=== PATIENT | female | born 1995 | race Caucasian/White ===

== ENCOUNTER 2016-03-26 20:55 | Emergency (ER) | payer MEDICARE, MEDICAID ==
[~2016-03-26] VITALS: Ht 167.6 cm; Wt 83.9 kg
[~2016-03-26 20:55] MED LIST: AMOX500C2 PO; ARIP10TA2 PO; ARIP5TAB13 PO; EMTR1TAB7 PO; FLUO10CA19; LISD50CA2 PO; ONDA8TAB13 PO; PRD20T PO; PROZAC; Prenatal; RALT400T PO; SULF1TAB35 PO; VYVANSE
--- NOTE | 2016-03-26 22:07 | Diagnostic Imaging Report ---
EXAM: Right hand. INDICATION: Randolph pain, 3 views were obtained. FINDINGS: No fracture, dislocation or acute bony abnormality evident. The soft tissues are unremarkable. As noted on the right wrist exam, there is ulnar minus variance. IMPRESSION: There is no evidence for an acute bony abnormality. Dictated by: Dictated on workstation # [id number]
--- NOTE | 2016-03-26 22:07 | Diagnostic Imaging Report ---
EXAMINATION: Right wrist INDICATION: Hand pain Three views were obtained. There is no fracture, dislocation or acute bony abnormality evident. The radiocarpal joint is fairly well-maintained. There is ulnar minus variance. The soft tissues are unremarkable. IMPRESSION: There is no evidence for an acute bony abnormality. Dictated by: Dictated on workstation # [id number]
--- NOTE | 2016-03-26 22:20 | ED General ---
General Chief Complaint: Upper Extremity Stated Complaint: R WRIST INJ Nursing Triage Note: c/o R wrist pain after getting out of bed. reports is 23 weeks gestation Source of Information: Patient Exam Limitations: No Limitations History of Present Illness Time Seen by Provider: 21:30 Initial Comments Patient complains of pain in the right wrist for the last 2-3 days. Tonight she was pushing herself up off the bed when she felt/heard her wrist pop a couple of times. The pain then intensified. She denies any known injury. There is no swelling, erythema, or other evidence of inflammation. She has not taken any medication for the pain. She does not work or perform any repetitive activities with this hand. She is presently . Allergies and Home Medications Allergies Coded Allergies: NKANo Known Allergies (Verified Allergy, Unknown, 01/24/06) Home Medications #30 (Reported) Constitutional: no symptoms reported EENTM: no symptoms reported Respiratory: no symptoms reported Cardiovascular: no symptoms reported Gastrointestinal: no symptoms reported Genitourinary: no symptoms reported : Yes Expected Date of Delivery: July 23, 2016 Musculoskeletal: see HPI Skin: no symptoms reported Psychiatric/Neurological: No Symptoms Reported Hematologic/Lymphatic: No Symptoms Reported Immunological/Allergic: no symptoms reported Past Hlhevws-Xdhyqn-Cxenyq Hx Patient Social History Alcohol Use: Denies Use Recreational Drug Use: Yes (THC) Smoking Status: Current Everyday Smoker Type Used: Cigarettes Recent Foreign Travel: No Contact w/Someone Who Travel: No Recent Infectious Disease Expo: No Recent Hopitalizations: No Ebola Symptoms: Denies Symptoms Listed Physical Abuse Screen: No Sexual Abuse: No Immunizations Up To Date Date of Influenza Vaccine: Dec 16, 2012 Seasonal Allergies Seasonal Allergies: No Surgeries HX Surgeries: No Respiratory Hx Respiratory Disorders: No Cardiovascular Hx Cardiac Disorders: No Neurological Hx Neurological Disorders: No Reproductive System Hx : 1 Hx Reproductive Disorders: No Genitourinary Hx Genitourinary Disorders: No Gastrointestinal Hx Gastrointestinal Disorders: No Musculoskeletal Hx Musculoskeletal Disorders: Yes (cleft pallet) Endocrine Hx Endocrine Disorders: No HEENT HX ENT Disorders: Yes (Cleft palate) Cancer Hx Cancer: No Psychosocial Hx Psychiatric Problems: Yes Behavioral Health Disorders: ADD/ADHD, Depression Integumentary HX Skin/Integumentary Disorder: No Blood Transfusions Hx Blood Disorders: No Family Medical History Significant Family History: No Pertinent Family Hx Physical Exam Vital Signs Vital Sign - Last 12Hours 03/26/16 03/26/16 21:00 22:23 Temp 98.4 Pulse 111 Resp 18 B/P 118/79 Pulse Ox 98 Capillary Refill : General Appearance: No Apparent Distress WD/WN HEENT: Normal ENT Inspection Respiratory: Normal Breath Sounds No Respiratory Distress Extremity: Other (No swelling or erythema of the right wrist. There is tenderness along the proximal aspect of the fifth metacarpal and throughout the wrist. 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 Patient was given a wrist brace for support. Diagnostic Imaging Diagonstic Imaging: Xray Plain Films/CT/US/NM/MRI: hand (Andrist) Comments X-rays of the right hand and wrist viewed by me and report reviewed. No acute injuries identified. Departure Impression Impression: Primary Impression: Right wrist pain Disposition: 01 HOME, SELF-CARE Condition: Improved Departure-Patient Inst. Decision time for Depature: 22:19 Referrals: FAWN BEACH DO (PCP/Family) Primary Care Physician Patient Instructions: NO INSTRUCTIONS GIVEN Add. Discharge Instructions: You may use Tylenol up to 1000 mg every 6 hours as needed for pain. Use the wrist brace as needed for support. Follow-up with your primary care provider within the next week if pain does not resolve. 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 All discharge instructions reviewed with patient and/or family. Voiced understanding. BASHIR CATHERINE MD Mar 26, 2016 22:20
== END 2016-03-26 22:24 | disposition home or self-care (01) ==
LOC: EDUNIT# 20:55 → ER 20:57
DX: O99.89 Other specified diseases and conditions complicating pregnancy, childbirth and the puerperium (principal); M79.641 Pain in right hand; O99.332 Smoking (tobacco) complicating pregnancy, second trimester; Z3A.23 23 weeks gestation of pregnancy
CPT/HCPCS: 73110; 73130; 99283

== ENCOUNTER 2016-06-17 10:31 | Outpatient (CLI) | payer MEDICARE, MEDICAID ==
[~2016-06-17] VITALS: Ht 167.6 cm; Wt 88.9 kg
[2016-06-17 11:00] VITALS: BP 122/73
--- NOTE | 2016-06-18 13:09 | Physician Query-Final Dx ---
MONTANA DANIELS 06/18/16 1309: Clinic Account Progress/Dx Physician Query: Please give diagnosis Date of Service Jun 17, 2016 at 10:31 CATALINA HURLEY MD 06/27/16 2004: Clinic Account Progress/Dx DIAGNOSIS: Diagnosis Vaginal Pressure Uterine Irritability MONTANA DANIELS Jun 18, 2016 13:09 CATALINA HURLEY MD Jun 27, 2016 20:04
[2016-06-19 07:18] LABS: CHLAMYDIA DNA PROBE PT Negative (Negative); NEISSERIA GONORRHEA DNA Negative (Negative)
== END 2016-06-17 12:42 | disposition home or self-care (01) ==
LOC: DELPENDDIS → WSo 10:31 → LDRP 10:31 → WSo 12:42
PROVIDERS: ATTEND Family Medicine
DX: O99.89 Other specified diseases and conditions complicating pregnancy, childbirth and the puerperium (principal); N85.8 Other specified noninflammatory disorders of uterus
CPT/HCPCS: 36415; 87070; 87491; 87591; 99213

== ENCOUNTER 2016-07-16 23:31 | Outpatient (CLI) | payer MEDICARE, MEDICAID ==
[~2016-07-16] VITALS: Ht 167.6 cm; Wt 91.2 kg
[2016-07-16 23:52] VITALS: BP 121/71
[2016-07-17 00:18] LABS: BILIRUBIN,URINE NEGATIVE (NEGATIVE); KETONES,URINE NEGATIVE (NEGATIVE); LEUKOCYTE ESTERASE ,URINE 1+ (NEGATIVE); NITRITE,URINE NEGATIVE (NEGATIVE); PH,URINE 7 (5-9); PROTEIN,URINE 1+ (NEGATIVE); UROBILINOGEN,URINE 1 MG/DL (NORMAL)
[2016-07-17] MEDS ORDERED: PREN-142 PO (01:00)
--- NOTE | 2016-07-17 12:38 | Physician Query-Final Dx ---
SAADIA BISHOP 07/17/16 1238: Clinic Account Progress/Dx Physician Query: Please give diagnosis Date of Service July 16, 2016 at 23:31 CATALINA HURLEY MD 07/18/16 1516: Clinic Account Progress/Dx DIAGNOSIS: Diagnosis Contractions Third trimester SAADIA BISHOP July 17, 2016 12:38 CATALINA HURLEY MD July 18, 2016 15:16
== END 2016-07-17 01:05 | disposition home or self-care (01) ==
LOC: WSo 23:31 → LDRP 23:33 → WSo 07-17 01:05
PROVIDERS: ATTEND Family Medicine
DX: O47.1 False labor at or after 37 completed weeks of gestation (principal); Z3A.39 39 weeks gestation of pregnancy
CPT/HCPCS: 81000; 99213

== ENCOUNTER 2016-07-22 20:04 | Inpatient (IN) | payer MEDICARE, MEDICAID ==
[~2016-07-22] VITALS: Ht 167.6 cm; Wt 91.6 kg
[~2016-07-22 20:04] MED LIST changes: +PREN-142 PO
[2016-07-22 20:14] VITALS: BP 106/59
[2016-07-22] MEDS ORDERED: ACETAMINOPHEN 500 MG TAB (TYLENOL) PO ONE (21:15)
--- NOTE | 2016-07-23 07:50 | Diagnostic Imaging Report ---
INDICATION: Undergoing induction. TECHNIQUE: Multiple, but limited real time boyce scale sonographic images were obtained of the gravid uterus. CORRELATION STUDY: None FINDINGS: Limited obstetrical sonogram imaging demonstrates a intrauterine , currently in a breech presentation. The upper limits amount of amniotic fluid index at 17.5 cm. Placenta is anterior with evidence for previa. anatomical evaluation not performed. Additionally, heart rate was not obtained. Biometrical measurements are as follows: Biparietal diameter 9.63 cm, age 39 weeks 3 days . Head circumference 34.63 cm, age 40 weeks 1 day . Abdominal circumference 37.72 cm, age 41 weeks 5 days . Femur length 7.65 cm, age 39 weeks 1 day . Sonographic estimated age: 40 weeks 1 day. Sonographic estimated date of delivery: 07/21/2016. heart rate: Not obtained. Estimated Weight: 4163 gm (+/- 608 gm) LMP Percentile: 89% IMPRESSION: 1. Single intrauterine in a breech presentation. Sonographic estimated age of 30 weeks 1 day with for an estimated date of delivery of July 21, 2016. Upper limits amount of amniotic fluid. Dictated by: Dictated on workstation # [id number]
[2016-07-23] MEDS ORDERED: OXYC-197 PO (08:03)
[2016-07-23] MEDS ORDERED: IBUP-1773 PO (08:03)
[2016-07-23] MEDS ORDERED: DOCU-143 PO (08:03)
--- NOTE | 2016-07-25 10:26 | Physician Query-Final Dx ---
DONNY PATTEN 07/25/16 1026: Clinic Account Progress/Dx Physician Query: Please give diagnosis Date of Service Progress Note: Donny [phone] ANA LAURA LICONA MD 08/01/16 2013: Clinic Account Progress/Dx DIAGNOSIS: Diagnosis 39 weeks gestation Breech position (admitted for IOL, discharged due to breech position, plan for c -section in the morning) DONNY PATTEN July 25, 2016 10:26 ANA LAURA LICONA MD August 01, 2016 20:13
== END 2016-07-22 22:25 | disposition home or self-care (01) | DRG 782 ==
LOC: LDRP 20:04
PROVIDERS: ADMIT Family Medicine; ATTEND Family Medicine
DX: O32.1XX0 Maternal care for breech presentation, not applicable or unspecified (principal); Z3A.39 39 weeks gestation of pregnancy
CPT/HCPCS: 76816; 80306

== ENCOUNTER 2016-07-23 07:07 | Inpatient (IN) | payer MEDICARE, MEDICAID ==
[~2016-07-23] VITALS: Ht 167.6 cm; Wt 90.3 kg
[2016-07-23 07:20] VITALS: BP 112/64
[2016-07-23] MEDS ORDERED: LACTATED RINGERS 1,000 ML IV PRN (07:22)
[2016-07-23] MEDS ORDERED: FAMOTIDINE 20MG/2ML IV (PEPCID) IV ONE ×2 (07:30→08:00)
[2016-07-23] MEDS ORDERED: METOCLOPRAMIDE INJ 10 MG/2 ML (REGLAN) IV ONE ×2 (07:30→08:00)
[2016-07-23] MEDS ORDERED: CITRIC ACID/SOB CIT (BICITRA) 30 ML UDC PO ONE ×2 (07:30→08:00)
[2016-07-23 07:55] VITALS: BP 113/75
[2016-07-23] MEDS ORDERED: fentaNYL INJECTION 100 MCG/2 ML AMP ONE (07:55)
[2016-07-23] MEDS ORDERED: OXYTOCIN/NORMAL SALINE 1,000 ML IV ONE (07:55)
--- NOTE | 2016-07-23 07:56 | History & Physical-OB ---
OB - Chief Complaint & HPI Date Date of Admission: Date of Admission: July 23, 2016 at 07:07 Chief Complaint/History OB-Reason for Admission/Chief: Induction of Labor Hx : 1 Hx Para: 0 Expected Date of Delivery: July 23, 2016 Gestational Age in Weeks: 40 Gestational Age in Days: 0 Other reason for admission: 21 y/o G1 @ 40w0d here as a scheduled elective IOL by Dr. Larose - subsequently found to be breech. I was contacted by Dr. Larose last night for management options. Denies complaints EFW 9lb3oz on sono yesterday, YESENIA 17cm Would like to proceed with scheduled c/s c/b tobacco use (has continued throughout ), also h/o chlamydia. H/o ADHD/depression/anxiety. H/o THC use. RH neg. History of Labs O neg Antibody neg HIV neg RI GC/CT neg/neg UDS neg RPR NR GBS Neg TSH normal Normal QS Allergies and Home Medications Allergies Coded Allergies: NKANo Known Allergies (Verified Allergy, Unknown, 01/24/06) Home Medications Vit No.124/Iron/FA 1 Each Tablet, 1 EACH PO DAILY, (Reported) OB - History Hx of Present Ultrasounds: Abnormal US findings (LGA (9lb3oz)) Obstetrical Complications: Other (Rh neg) Medical Complications: Other (ADHD/depression/anxiety, tobacco use) Information Maternal Gestational Diabetes: No Hemorrhage: No Obstetrical History Hx : 1 Delivery History Hx Blood Disorders: No Patient Past Medical History see above Social History/Family History HIV/AIDS: No Recent Infectious Disease Expo: No Sexually Transmitted Disease: Yes (h/o chlamydia, neg in ) Smoking Cessation: Current every day smoker Immunizations Tetanus Booster (TDap): Less than 5yrs (05/23/16 per record) Date of Influenza Vaccine: Dec 16, 2012 Rubella: immune RPR/VDRL: Negative GBS Status: Negative OB - Admission Exam Physical Exam Vitals: see air tucker HEENT: NCAT Heart: Rhythm Normal Lungs: Clear Abdomen: Gravid Extremities: Normal Reflexes: Normal Heart Rate: 130's Accelerations: Accelerations Present Decelerations: No Decelerations Short Term Variability: Present Hog Raiser Variability: Average (6-25) Contractions on Admission: >10 Minutes Apart OB - Assessment/Plan/Diagnosis Plan Other Plan 21 y/o G1 @ 40w0d with scheduled elective IOL, pt of Dr. Larose, subsequently found to be in breech presentation (confirmed on my sono today - footling breech , spine up, head to maternal right) GBS neg Tobacco use H/o THC use Depression/anxiety/ADHD Rh negative H/o chlamydia, neg this RI I discussed with Lara options including ECV which I am hesitant to perform given LGA fetus in a G1 mother. She is in agreement with plan for CS and I did vocational guidance counselor her that in the future she would be a great candidate if no contraindications to vaginal delivery in future . Did vocational guidance counselor her on the importance of tobacco cessation both for her and her baby as well as healing purposes. Discussed r/b/a to section. Specific risks including bleeding, infection, damage to surrounding structures including but not limited to bowel/ bladder/nerves/vessels/other structures and damage to mother or infant. Spinal anesthesia Lissette-operative ancef RhoGAM if indicated TAMRA Corbett MD July 23, 2016 07:56
[2016-07-23] MEDS ORDERED: CATHETER FLUSH 10 ML SYR IV PRN (08:00)
[2016-07-23] MEDS ORDERED: OXYC-197 PO (08:03)
[2016-07-23] MEDS ORDERED: DOCU-143 PO (08:03)
[2016-07-23] MEDS ORDERED: IBUP-1773 PO (08:03)
--- NOTE | 2016-07-23 08:04 | Discharge Inst-Women's Service ---
Discharge Inst-Women's Serv Depart Medication/Instructions New, Converted or Re-Newed RX: RX on Chart Final Diagnosis TIUP, breech presentation, delivery (low transverse) Consults/Follow Up Additional Follow Up: Yes Orders/Referrals 10-[address] Maria [address] Larose Activity Driving Instructions: No Driving for 1 Week (or while taking narcotic pain medications) NO SMOKING: NO SMOKING Nothing Inside Vagina: No Douching, No [place], No Tampons Other Activity No strenuous activity No heavy lifting > 10 lb Diet Discharge Diet: No Restrictions Symptoms to Report to DrBethanie: Bleeding Excessive, Pain Increased, Fever Over 101 Degrees F, Pain/Pressure in Chest, Vaginal Bleeding Increase, Dizziness/Fainting , Nausea/Vomiting, Shortness of Breath For Any Problems or Questions: Contact Your Physician, Go to Emergency Room Skin/Wound Care Infection Signs and Symptoms: Increased Redness, Foul Odor of Wound, Increased Drainage Operative Area Clean and Dry: Keep Incision Clean/Dry Stitches/[place]/Dermabond: Dermabond, Care of Stitches Bathing Instructions: TAMRA Mcdaniel MD July 23, 2016 08:04
[2016-07-23 08:05] LABS: BASOPHILS % (AUTO) 0 % (0-10); EOSINOPHILS # (AUTO) 0.1 10^3/uL (0.0-0.3); EOSINOPHILS % (AUTO) 1 % (0-10); LYMPHOCYTES # (AUTO) 2.7 X 10^3 (1.0-4.0); LYMPHOCYTES % (AUTO) 18 % (12-44); MEAN CORPUSCULAR HEMOGLOBIN 31 PG (25-34); MEAN CORPUSCULAR HGB CONC 34 G/DL (32-36); MEAN CORPUSCULAR VOLUME 90 FL (80-99); MEAN PLATELET VOLUME 10.3 FL (7.4-10.4); MONOCYTES # (AUTO) 1.1 X 10^3 (0.0-1.0); MONOCYTES % (AUTO) 7 % (0-12); NEUTROPHILS # (AUTO) 11.3 X 10^3 (1.8-7.8); NEUTROPHILS % (AUTO) 74 % (42-75); PLATELET COUNT 279 10^3/uL (130-400); RED BLOOD COUNT 4.09 10^6/uL (4.35-5.85); RED CELL DISTRIBUTION WIDTH 13.1 % (10.0-14.5); WHITE BLOOD COUNT 15.2 10^3/uL (4.3-11.0)
--- NOTE | 2016-07-23 08:08 | Cesarean Section Operative ---
Procedure Procedure Note Date of Procedure: 07/23/16 Pre-operative Diagnosis: Lara Loyd is a 21 y/o G1 @ 40w0d with footling breech presentation, Rh negative status, tobacco use, suspected large for gestational age fetus Post-operative Diagnosis: same Procedure: Primary low transverse section Physician: Sariah Maria MD Estimated blood loss: 400 mL Specimens: Placenta/cord blood to pathology/lab Disposition: Recovery room, stable Findings: Viable male , Apgars 9/9, weight [id number], intact placenta, 3vc, normal appearing uterus, tubes, and ovaries. Tight double nuchal cord. Indications: Lara Loyd is a 21 y/o G1 @ 40w0d presenting for scheduled induction of labor as per Dr. Larose. She was subsequently found to be in breech presentation before IOL was started. Ultrasound was performed which revealed adequate fluid however footling breech presentation and EFW of 9lb3oz. She was counseled on options and elected to proceed with delivery. Procedure Details: The patient was seen in pre-op and the procedure was discussed with the patient in full, including the risks, benefits, and alternatives. All questions were answered. The patient was taken to the operating room and a time out was performed, verifying patient and procedure. After spinal anesthesia was placed by our anesthesia colleagues, the patient was placed in the dorsal supine with leftward tilt for uterine displacement. Her abdomen was then prepped and draped in the typical sterile fashion. A Pfannenstiel skin incision was made using a scalpel and carried down through the underlying fascia. The fascia was incised in the midline and tented up using Guilherme clamps. On both the inferior and superior fascia side the rectus muscle was dissected off bluntly and sharply using Lockwood scissors. The peritoneum was identified and entered bluntly in the midline. This was then stretched laterally using manual strength. After entering the abdominal cavity and confirming lack of intraperitoneal adhesions, an extra-large Juan Carlos retractor was placed and the lower uterine segment was visualized. A bladder flap was created with the use of Metzenbaum scissors. A scalpel was utilized to make a low transverse uterine incision. Amniotomy was performed with an Allis clamp with return of clear fluid. The 's legs were grasped and brought to the level of the incision. The infant was delivered to the level of the shoulder blades, then each arm was individually flexed and delivered through the hysterotomy. Fundal pressure was applied and infant's head was then delivered without difficulty. Mouth and nares were suctioned with bulb suction. After the umbilical cord was clamped and cut, the infant was handed off to the pediatric staff. A sample of cord blood was then obtained. The placenta was delivered intact via uterine massage. The uterus was cleared of all clots and debris. The uterine incision was closed using 0 Vicryl in a running locked fashion. A second imbricated layer was placed using 0 Vicryl in a running fashion as well. The hysterotomy site was examined and hemostasis was observed. The bilateral tubes and ovaries appeared normal. The gutters were cleared of all clots and debris. A final check of the uterine incision showed it to be hemostatic. Intercede was placed over the hysterotomy. The peritoneum was closed using 3-0 Vicryl in a running fashion. The fascia was closed with 0 Vicryl in a running fashion. The subcutaneous space was hemostatic, and irrigated. The subcutaneous space was closed with 3-0 Vicryl in several single interrupted stitches. The skin was then closed using 4-0 Monocryl in a running subcuticular fashion. The skin edges were reapproximated together and were hemostatic. A pressure dressing was applied. All sponge, lap and needle counts were correct at the end of the procedure per nursing. Vitals - Labs Labs Laboratory Tests 07/23/16 07:44: SARIAH MARIA MD July 23, 2016 08:08
[2016-07-23] MEDS ORDERED: ceFAZolin 2 GM/50 ML NS 50 ML ONE (08:11)
[2016-07-23 08:26] LABS: BAND NEUTROPHILS 0 %; BASOPHILS % (MANUAL) 0 %; EOSINOPHILS % (MANUAL) 0 %; LYMPHOCYTES % (MANUAL) 14 %; NEUTROPHILS % (MANUAL) 76 %
[2016-07-23] MEDS ORDERED: OXYTOCIN/NORMAL SALINE 500 ML IV SCH (09:27)
[2016-07-23] MEDS ORDERED: morphine INJ 4 MG/ML 1 ML (VIAL/SYRINGE) IVP PRN (09:30)
[2016-07-23 10:00] VITALS: BP 108/70
[2016-07-23] MEDS: KETOROLAC 30 MG/ML VIAL IVP SCH ×3 (10:10→21:49)
[2016-07-23] MEDS: oxyCODONE/APAP 5/325MG (PERCOCET 5) TABLET PO PRN ×3 (12:15→21:51)
[2016-07-23 13:30] VITALS: BP 112/68
[2016-07-23 15:38] LABS: BILIRUBIN,URINE NEGATIVE (NEGATIVE); KETONES,URINE NEGATIVE (NEGATIVE); LEUKOCYTE ESTERASE ,URINE NEGATIVE (NEGATIVE); NITRITE,URINE NEGATIVE (NEGATIVE); PH,URINE 8 (5-9); PROTEIN,URINE NEGATIVE (NEGATIVE); UROBILINOGEN,URINE NORMAL (NORMAL)
[2016-07-23 15:51] VITALS: BP 119/73
[2016-07-23 16:08] LABS: WBC,URINE 0-2 /HPF
[2016-07-23] MEDS: NICOTINE 14 MG (NICODERM) PATCH TD SCH (16:08)
[2016-07-23 19:57] VITALS: BP 108/67
[2016-07-23] MEDS: DOCUSATE SODIUM 100 MG (COLACE) CAP PO SCH (21:49)
[2016-07-23] MEDS: CATHETER FLUSH 10 ML SYR IV SCH (22:00)
[2016-07-24] MEDS: oxyCODONE/APAP 5/325MG (PERCOCET 5) TABLET PO PRN ×4 (03:35→21:15)
[2016-07-24] MEDS: KETOROLAC 30 MG/ML VIAL IVP SCH (03:35)
[2016-07-24 04:00] VITALS: BP 104/61
[2016-07-24 05:46] LABS: BASOPHILS % (AUTO) 0 % (0-10); EOSINOPHILS # (AUTO) 0.1 10^3/uL (0.0-0.3); EOSINOPHILS % (AUTO) 1 % (0-10); LYMPHOCYTES # (AUTO) 2.8 X 10^3 (1.0-4.0); LYMPHOCYTES % (AUTO) 23 % (12-44); MEAN CORPUSCULAR HEMOGLOBIN 31 PG (25-34); MEAN CORPUSCULAR HGB CONC 34 G/DL (32-36); MEAN CORPUSCULAR VOLUME 91 FL (80-99); MEAN PLATELET VOLUME 9.8 FL (7.4-10.4); MONOCYTES % (AUTO) 8 % (0-12); NEUTROPHILS # (AUTO) 8.5 X 10^3 (1.8-7.8); NEUTROPHILS % (AUTO) 68 % (42-75); PLATELET COUNT 234 10^3/uL (130-400); RED BLOOD COUNT 3.43 10^6/uL (4.35-5.85); WHITE BLOOD COUNT 12.5 10^3/uL (4.3-11.0)
[2016-07-24] MEDS: CATHETER FLUSH 10 ML SYR IV SCH ×2 (06:58→12:40)
[2016-07-24] MEDS ORDERED: IBUPROFEN 600 MG (MOTRIN) TAB PO ONE (08:37)
[2016-07-24] MEDS ORDERED: IBUPROFEN 800 MG (MOTRIN) TAB PO ONE (08:56)
[2016-07-24] MEDS ORDERED: NICOTINE PATCH REMOVAL TP SCH (08:59)
[2016-07-24 09:11] VITALS: BP 108/61
[2016-07-24] MEDS: DOCUSATE SODIUM 100 MG (COLACE) CAP PO SCH ×2 (09:12→20:38)
[2016-07-24] MEDS: IBUPROFEN 800 MG (MOTRIN) TAB PO SCH ×3 (09:12→20:39)
--- NOTE | 2016-07-24 09:58 | Postpartum Progress Note ---
Post Op Post-operative Day #1 s/p PLTCS, breech Subjective: Patient is without complaints. Ambulating, voiding after mcdonald removed. Tolerating a regular diet without nausea or vomiting. Normal lochia. Pain is well controlled with oral pain medications. Passing flatus. she is requesting to leave the floor to smoke. Discusse replacing the patch as it had fallen off. Would prefer she use the patch and not leave the floor. Objective: Laboratory Tests Test 07/24/16 05:33 Range/Units White Blood Count 12.5 H 4.3-11.0 10^3/uL Red Blood Count 3.43 L 4.35-5.85 10^6/uL Hemoglobin 10.6 L 11.5-16.0 G/DL Hematocrit 31 L 35-52 % Mean Corpuscular Volume 91 80-99 FL Mean Corpuscular Hemoglobin 31 25-34 PG Mean Corpuscular Hemoglobin Concent 34 32-36 G/DL Red Cell Distribution Width 13.0 10.0-14.5 % Platelet Count 234 130-400 10^3/uL Mean Platelet Volume 9.8 7.4-10.4 FL Neutrophils (%) (Auto) 68 42-75 % Lymphocytes (%) (Auto) 23 12-44 % Monocytes (%) (Auto) 8 0-12 % Eosinophils (%) (Auto) 1 0-10 % Basophils (%) (Auto) 0 0-10 % Neutrophils # (Auto) 8.5 H 1.8-7.8 X 10^3 Lymphocytes # (Auto) 2.8 1.0-4.0 X 10^3 Monocytes # (Auto) 1.0 0.0-1.0 X 10^3 Eosinophils # (Auto) 0.1 0.0-0.3 10^3/uL Basophils # (Auto) 0.0 0.0-0.1 10^3/uL Vital Sign - Last 12Hours 07/24/16 07/24/16 04:00 09:11 Temp 98.4 99.0 Pulse 97 93 Resp 20 18 B/P (MAP) 104/61 108/61 Pulse Ox 97 97 O2 Delivery Room Air Room Air Intake and Output 07/24/16 00:00 Intake Total 3020 ml Output Total 1100 ml Balance 1920 ml Physical Exam: General - Alert and oriented, no apparent distress Abdomen - Soft, appropriately tender to palpation, non-distended, fundus firm at umbilicus Incision - clean, dry and intact; no erythema or induration, no drainage Extremities - no edema, negative Twin's bilaterally Assessment: 1. post-operative day # 1, status post PLTCS. Recovering well, hemodynamically stable 2.Acute blood loss anemia 3. smoker - replace the patch Plan: Routine post-operative care. Encourage breast feeding. Encourage ambulation. VTE prophylaxis: SCDs. Ferrous sulfate supplementation. Plan for discharge tomorrow Vitals - Labs Vital Signs - I&O Vital Signs Date Time Temp Pulse Resp B/P (MAP) Pulse Ox O2 Delivery O2 Flow Rate FiO2 07/24/16 09:11 99.0 93 18 108/61 97 Room Air 07/24/16 04:00 98.4 97 20 104/61 97 Room Air 07/23/16 19:57 98.0 94 20 108/67 96 Room Air 07/23/16 15:51 98.0 86 16 119/73 96 Room Air 07/23/16 13:30 98.2 98 18 112/68 96 Room Air 07/23/16 12:45 98.2 07/23/16 10:00 98.0 90 15 108/70 97 Room Air I & O 07/24/16 07:00 Intake Total 6220 ml Output Total 2650 ml Balance 3570 ml Labs Laboratory Tests 07/24/16 05:33: White Blood Count 12.5H, Red Blood Count 3.43L, Hemoglobin 10.6L, Hematocrit 31L , Mean Corpuscular Volume 91, Mean Corpuscular Hemoglobin 31, Mean Corpuscular Hemoglobin Concent 34, Red Cell Distribution Width 13.0, Platelet Count 234, Mean Platelet Volume 9.8, Neutrophils (%) (Auto) 68, Lymphocytes (%) (Auto) 23, Monocytes (%) (Auto) 8, Eosinophils (%) (Auto) 1, Basophils (%) (Auto) 0, Neutrophils # (Auto) 8.5H, Lymphocytes # (Auto) 2.8, Monocytes # (Auto) 1.0, Eosinophils # (Auto) 0.1, Basophils # (Auto) 0.0 MINDY DIAZ DO July 24, 2016 09:58
[2016-07-24] MEDS: NICOTINE 14 MG (NICODERM) PATCH TD SCH (10:10)
[2016-07-24 15:06] VITALS: BP 122/75
[2016-07-24 20:00] VITALS: BP 114/72
[2016-07-25 03:03] VITALS: BP 129/77
[2016-07-25] MEDS: IBUPROFEN 800 MG (MOTRIN) TAB PO SCH ×4 (03:03→20:34)
[2016-07-25] MEDS: DOCUSATE SODIUM 100 MG (COLACE) CAP PO SCH ×2 (08:34→20:34)
[2016-07-25] MEDS: oxyCODONE/APAP 5/325MG (PERCOCET 5) TABLET PO PRN ×3 (08:34→20:34)
--- NOTE | 2016-07-25 09:25 | Postpartum Progress Note ---
Post Op Post-operative Day #2 Subjective: Unable to obtain as I came by her room four times from 7:00-9:00 this morning and patient was not present at any of those times; per nursing, she was out smoking. Objective: VS - Last 72 Hours, by Label 07/23/16 07/23/16 07/23/16 07/23/16 07:20 07:55 10:00 12:45 Temp 98.1 98.0 98.2 Pulse 116 104 90 Resp 20 20 15 B/P (MAP) 112/64 113/75 108/70 Pulse Ox 97 O2 Delivery Room Air Room Air Room Air 07/23/16 07/23/16 07/23/16 07/24/16 13:30 15:51 19:57 04:00 Temp 98.2 98.0 98.0 98.4 Pulse 98 86 94 97 Resp 18 16 20 20 B/P (MAP) 112/68 119/73 108/67 104/61 Pulse Ox 96 96 96 97 O2 Delivery Room Air Room Air Room Air Room Air 07/24/16 07/24/16 07/24/16 07/25/16 09:11 15:06 20:00 03:03 Temp 99.0 97.8 97.7 98.0 Pulse 93 113 90 83 Resp 18 18 16 16 B/P (MAP) 108/61 122/75 114/72 129/77 Pulse Ox 97 98 95 97 O2 Delivery Room Air Room Air Room Air Room Air Physical Exam: General - Alert and oriented, no apparent distress Abdomen - Soft, appropriately tender to palpation, non-distended, fundus firm at umbilicus Incision - clean, dry and intact; no erythema or induration, no drainage Extremities - no edema, negative Twin's bilaterally no new labs Assessment: 21 y/o post-operative day # 2, status post PLTCS for breech presentation. Recovering well, hemodynamically stable Acute blood loss anemia Tobacco use H/o THC use Depression/anxiety/ADHD Rh negative Plan: Routine post-operative care. Encourage breast feeding. Encourage ambulation. VTE prophylaxis: SCDs. Ferrous sulfate supplementation. Encourage smoking cessation. Do not replace nicotine patch as pt is smoking outside anyways. Will attempt to see patient again later today. But will not be discharging home per Dr. Falk, so will keep until tomorrow. Vitals - Labs Vital Signs - I&O Vital Signs Date Time Temp Pulse Resp B/P (MAP) Pulse Ox O2 Delivery O2 Flow Rate FiO2 07/25/16 03:03 98.0 83 16 129/77 97 Room Air 07/24/16 20:00 97.7 90 16 114/72 95 Room Air 07/24/16 15:06 97.8 113 18 122/75 98 Room Air I & O 07/25/16 07:00 Intake Total 2700 ml Output Total 1300 ml Balance 1400 ml TAMRA DUARTE MD July 25, 2016 09:25
[2016-07-25 09:48] VITALS: BP 120/79
[2016-07-25 12:00] VITALS: BP 105/74
[2016-07-25] MEDS ORDERED: FERR-84 PO (12:28)
[2016-07-25] MEDS: FERROUS SULF 325 MG (IRON) TAB PO SCH (14:20)
[2016-07-25 20:00] VITALS: BP 116/74
[2016-07-26] MEDS: IBUPROFEN 800 MG (MOTRIN) TAB PO SCH ×2 (02:23→08:32)
[2016-07-26 03:07] VITALS: BP 119/77
[2016-07-26 08:30] VITALS: BP 107/72
[2016-07-26] MEDS: DOCUSATE SODIUM 100 MG (COLACE) CAP PO SCH (08:31)
[2016-07-26] MEDS: oxyCODONE/APAP 5/325MG (PERCOCET 5) TABLET PO PRN (08:32)
[2016-07-26] MEDS: FERROUS SULF 325 MG (IRON) TAB PO SCH (08:32)
--- NOTE | 2016-07-26 12:56 | Progress Note-Standard ---
Standard Progress Note Progress Notes/Assess & Plan Progress/Assessment & Plan Post-operative Day #3 Subjective: Unable to obtain as I came by her room twice from 7:00-9:00 this morning and patient was not present at any of those times; per nursing, she was out smoking. Per RN her pain is well controlled and she is ambulating and voiding freely. Objective: Vital Sign - Last 24 Hours 07/25/16 07/26/16 20:00 03:07 Temp 98.6 97.8 Pulse 78 95 Resp 17 16 B/P (MAP) 116/74 119/77 Pulse Ox 98 95 O2 Delivery Room Air Room Air Physical Exam: unable to obtain -per RN incision is clean dry and intact no new labs Assessment: 21 y/o post-operative day # 3, status post PLTCS for breech presentation. Recovering well, hemodynamically stable Acute blood loss anemia Tobacco use H/o THC use Depression/anxiety/ADHD Rh negative Plan: Routine post-operative care. Encourage breast feeding. Encourage ambulation. VTE prophylaxis: SCDs. Ferrous sulfate supplementation. Encourage smoking cessation. Do not replace nicotine patch as pt is smoking outside anyways. JL MIRANDA DO July 26, 2016 12:56 pm
== END 2016-07-26 13:20 | disposition home or self-care (01) | DRG 766 ==
LOC: LDRP 07:07
PROVIDERS: ADMIT Family Medicine; ATTEND Family Medicine
PROC: 10D00Z1 Extraction of Products of Conception, Low, Open Approach (ICD-10-PCS; principal; 2016-07-23 08:18)
DX: O64.8XX0 Obstructed labor due to other malposition and malpresentation, not applicable or unspecified (principal); O36.63X0 Maternal care for excessive fetal growth, third trimester, not applicable or unspecified; O69.1XX0 Labor and delivery complicated by cord around neck, with compression, not applicable or unspecified; O99.334 Smoking (tobacco) complicating childbirth; F17.210 Nicotine dependence, cigarettes, uncomplicated; O99.344 Other mental disorders complicating childbirth; F32.9 Major depressive disorder, single episode, unspecified; F41.9 Anxiety disorder, unspecified; F90.9 Attention-deficit hyperactivity disorder, unspecified type; Z37.0 Single live birth; Z3A.40 40 weeks gestation of pregnancy
CPT/HCPCS: 36415; 81000; 83033; 85007; 85025; 85027; 86850; 86900; 86901; 94664

== ENCOUNTER 2018-08-19 01:06 | Emergency (ER) | payer MEDICARE, MEDICAID ==
[~2018-08-19] VITALS: Ht 167.6 cm; Wt 83.9 kg
[~2018-08-19 01:06] MED LIST changes: +DOCU-143 PO; +FERR-84 PO; +IBUP-1773 PO; +OXYC1TAB87 PO
[2018-08-19] MEDS ORDERED: fentaNYL INJECTION 100 MCG/2 ML AMP IVP STA (01:28)
[2018-08-19] MEDS ORDERED: NS IV 1000 ML 1,000 ML IV STA (01:28)
[2018-08-19] MEDS ORDERED: KETOROLAC 30 MG/ML VIAL IVP STA (01:28)
[2018-08-19] MEDS ORDERED: ONDANSETRON 4 MG/2 ML (SDV) Z0FRAN IVP ONE (01:30)
[2018-08-19 01:33] LABS: BILIRUBIN,URINE NEGATIVE (NEGATIVE); CLARITY,URINE SLIGHTLY CLOUDY; COLOR,URINE YELLOW; GLUCOSE, URINE (UA) NEGATIVE (NEGATIVE); KETONES,URINE NEGATIVE (NEGATIVE); LEUKOCYTE ESTERASE ,URINE 1+ (NEGATIVE); NITRITE,URINE NEGATIVE (NEGATIVE); PH,URINE 7 (5-9); PROTEIN,URINE 2+ (NEGATIVE); UROBILINOGEN,URINE 8 MG/DL (NORMAL)
[2018-08-19 01:42] LABS: BASOPHILS % (AUTO) 0 % (0-10); EOSINOPHILS % (AUTO) 0 % (0-10); HEMATOCRIT 41 % (35-52); HEMOGLOBIN 13.5 G/DL (11.5-16.0); LYMPHOCYTES # (AUTO) 1.6 X 10^3 (1.0-4.0); LYMPHOCYTES % (AUTO) 9 % (12-44); MEAN CORPUSCULAR HEMOGLOBIN 29 PG (25-34); MEAN CORPUSCULAR HGB CONC 33 G/DL (32-36); MEAN CORPUSCULAR VOLUME 88 FL (80-99); MEAN PLATELET VOLUME 9.5 FL (7.4-10.4); MONOCYTES % (AUTO) 6 % (0-12); NEUTROPHILS # (AUTO) 14.9 X 10^3 (1.8-7.8); NEUTROPHILS % (AUTO) 85 % (42-75); PLATELET COUNT 273 10^3/uL (130-400); RED CELL DISTRIBUTION WIDTH 14.1 % (10.0-14.5); WHITE BLOOD COUNT 17.6 10^3/uL (4.3-11.0)
[2018-08-19 01:45] LABS: BACTERIA,URINE MODERATE /HPF
--- NOTE | 2018-08-19 02:02 | ED Abdominal Pain ---
General Chief Complaint: Abdominal/GI Problems Stated Complaint: PAIN IN SIDE AND BACK Nursing Triage Note: AMBULATORY TO ED WITH C/O PAIN TO RUQ THROUGH TO MIDDLE OF BACK THAT STARTED 2H [employer]. LAST ATE BEER BRATWURST AT APPROX 1999. POSITIVE FOR N/V. ABD TENDER TO PALPATION. Sepsis Screen: No Definite Risk Source of Information: Patient, Family Exam Limitations: No Limitations History of Present Illness Date Seen by Provider: Aug 19, 2018 Time Seen by Provider: 01:21 Initial Comments Here with report of right upper quadrant abdominal pain that goes to her back. Onset a few hours ago. Last ate at about 8 PM and did not have pain related to that but it started later. Worse until now. Presents with increasing pain. Never had anything like this before. Denies dysuria or diarrhea. Timing/Duration: 4-6 Hours Severity/Quality: Moderate, Severe Location: RUQ Radiation: Back Activities at Onset: None Modifying Factors: Worsens With Movement; Improves With Resting Associated Symptoms: Back Pain; No Chest Pain, No Fever/Chills, No Nausea/Vomiting, No Shortness of Air, No Swelling/Mass in Abdomen, No Weakness Allergies and Home Medications Allergies Coded Allergies: NKANo Known Allergies (Verified Allergy, Unknown, 01/24/06) Patient Home Medication List Home Medication List Reviewed: Yes Review of Systems Review of Systems Constitutional: No chills, No fever EENTM: No Symptoms Reported Respiratory: No Symptoms Reported Cardiovascular: Denies Chest Pain, Denies Edema Gastrointestinal: Abdominal Pain, Nausea, Vomiting Genitourinary: No Symptoms Reported Musculoskeletal: see HPI Skin: no symptoms reported Psychiatric/Neurological: No Symptoms Reported Endocrine: No Symptoms Reported All Other Systems Reviewed Negative Unless Noted: Yes Past Ijloksu-Qwkiiy-Ocsmvs Hx Past Med/Social Hx: Reviewed Nursing Past Med/Soc Hx Patient Social History Alcohol Use: Occasionally Uses Recreational Drug Use: Yes Drug of Choice: MARIJUANA Smoking Status: Current Everyday Smoker Type Used: Cigarettes Recent Foreign Travel: No Contact w/Someone Who Travel: No Recent Infectious Disease Expo: No Recent Hopitalizations: No Immunizations Up To Date Tetanus Booster (TDap): Less than 5yrs Date of Influenza Vaccine: Dec 16, 2012 Seasonal Allergies Seasonal Allergies: No Past Medical History Surgeries: Yes Section Respiratory: No Cardiac: No Neurological: No Reproductive Disorders: No Sexually Transmitted Disease: Yes (h/o chlamydia, neg in ) HIV/AIDS: No Genitourinary: No Gastrointestinal: No Musculoskeletal: Yes (cleft pallet) Endocrine: No HEENT: Yes (WEARS GLASSES) Cancer: No Psychosocial: Yes ADD/ADHD, Depression Integumentary: No Blood Disorders: No Family Medical History Reviewed Nursing Family Hx FH: breast cancer ([employer] [employer]AND[employer]OTHER) Myocardial infarction ([facility]) No Pertinent Family Hx Physical Exam Vital Signs Vital Signs - First Documented 08/19/18 01:20 Temp 97.3 Pulse 87 Resp 18 B/P (MAP) 117/89 (98) O2 Delivery Room Air Capillary Refill : Less Than 3 Seconds Height/Weight/BMI Height: 5'6.00" Weight: 185lbs. 0.4oz. 83.500485jk; 32.1 BMI Method:Stated General Appearance: WD/WN, mild distress HEENT: PERRL/EOMI, pharynx normal Neck: full range of motion, supple Respiratory: lungs clear, normal breath sounds Cardiovascular: regular rate, rhythm, no murmur Peripheral Pulses: 2+ Dorsalis Pedis (R), 2+ Left Dors-Pedis (L), 2+ Radial Pulses (R), 2+ Radial Pulses (L) Gastrointestinal: soft; No rebound; tenderness; No mass Extremities: non-tender, normal inspection Back: normal inspection, no CVA tenderness, no vertebral tenderness Neurologic/Psychiatric: alert, oriented x 3 Skin: normal color, warm/dry Progress/Results/Core Measures Results/Orders Lab Results Laboratory Tests Test 08/19/18 01:27 08/19/18 01:33 Range/Units Urine Color YELLOW Urine Clarity SLIGHTLY CLOUDY Urine pH 7 5-9 Urine Specific [place] 1.010 L 1.016-1.022 Urine Protein 2+ H NEGATIVE Urine Glucose (UA) NEGATIVE NEGATIVE Urine Ketones NEGATIVE NEGATIVE Urine Nitrite NEGATIVE NEGATIVE Urine Bilirubin NEGATIVE NEGATIVE Urine Urobilinogen 8 H NORMAL MG/DL Urine Leukocyte Esterase 1+ H NEGATIVE Urine RBC (Auto) NEGATIVE NEGATIVE Urine RBC NONE /HPF Urine WBC 2-5 /HPF Urine Squamous Epithelial Cells 10-25 H /HPF Urine Crystals NONE /LPF Urine Bacteria MODERATE H /HPF Urine Casts NONE /LPF Urine Mucus MODERATE H /LPF Urine Culture Indicated YES White Blood Count 17.6 H 4.3-11.0 10^3/uL Red Blood Count 4.62 4.35-5.85 10^6/uL Hemoglobin 13.5 11.5-16.0 G/DL Hematocrit 41 35-52 % Mean Corpuscular Volume 88 80-99 FL Mean Corpuscular Hemoglobin 29 25-34 PG Mean Corpuscular Hemoglobin Concent 33 32-36 G/DL Red Cell Distribution Width 14.1 10.0-14.5 % Platelet Count 273 130-400 10^3/uL Mean Platelet Volume 9.5 7.4-10.4 FL Neutrophils (%) (Auto) 85 H 42-75 % Lymphocytes (%) (Auto) 9 L 12-44 % Monocytes (%) (Auto) 6 0-12 % Eosinophils (%) (Auto) 0 0-10 % Basophils (%) (Auto) 0 0-10 % Neutrophils # (Auto) 14.9 H 1.8-7.8 X 10^3 Lymphocytes # (Auto) 1.6 1.0-4.0 X 10^3 Monocytes # (Auto) 1.0 0.0-1.0 X 10^3 Eosinophils # (Auto) 0.0 0.0-0.3 10^3/uL Basophils # (Auto) 0.0 0.0-0.1 10^3/uL Neutrophils % (Manual) 81 % Lymphocytes % (Manual) 8 % Monocytes % (Manual) 9 % Eosinophils % (Manual) 1 % Band Neutrophils 1 % Blood Morphology Comment NORMAL Sodium Level 142 135-145 MMOL/L Potassium Level 3.6 3.6-5.0 MMOL/L Chloride Level 106 98-107 MMOL/L Carbon Dioxide Level 26 21-32 MMOL/L Anion Gap 10 5-14 MMOL/L Blood Urea Nitrogen 13 7-18 MG/DL Creatinine 0.71 0.60-1.30 MG/DL Estimat Glomerular Filtration Rate > 60 BUN/Creatinine Ratio 18 Glucose Level 114 H 70-105 MG/DL Calcium Level 9.3 8.5-10.1 MG/DL Corrected Calcium 9.0 8.5-10.1 MG/DL Magnesium Level 2.5 H 1.8-2.4 MG/DL Total Bilirubin 0.3 0.1-1.0 MG/DL Aspartate Amino Transf (AST/SGOT) 240 H 5-34 U/L Alanine Aminotransferase (ALT/SGPT) 138 H 0-55 U/L Alkaline Phosphatase 55 40-136 U/L Total Protein 6.7 6.4-8.2 GM/DL Albumin 4.4 3.2-4.5 GM/DL Lipase 15 8-78 U/L My Orders Orders - IAN CORRAL MD Urine Bedside (08/19/18 01:16) Ua Culture If Indicated (08/19/18 01:16) Ondansetron Injection (Zofran Injectio (08/19/18 01:30) Ns Iv 1000 Ml (Sodium Chloride 0.9%) (08/19/18 01:28) Ed Iv/Invasive Line Start (08/19/18 01:28) Fentanyl Injection (Sublimaze Injection (08/19/18 01:28) Ketorolac Injection (Toradol Injection) (08/19/18:28) Cbc With Automated Diff (08/19/18 01:28) Comprehensive Metabolic Panel (08/19/18 01:28) Lipase (08/19/18 01:28) Magnesium (08/19/18 01:28) Urine Culture (08/19/18 01:27) Manual Differential (08/19/18 01:33) Ct Abdomen/Pelvis W (08/19/18 01:47) Iohexol Injection (Omnipaque 350 Mg/Ml 1 (08/19/18 02:45) Received Contrast (Hold Metformin- Contr (08/19/18 02:45) Ns (Ivpb) (Sodium Chloride 0.9% Ivpb Bag (08/19/18 02:45) Medications Given in ED Current Medications Medications Dose Ordered Sig/Tyrell Route Start Time Stop Time Status Last Admin Dose Admin Iohexol 100 ml ONCE ONCE IV 08/19/18 02:45 08/19/18 02:46 DC 08/19/18 02:40 100 ML Ondansetron HCl 4 mg ONCE ONCE IVP 08/19/18 01:30 08/19/18 01:31 DC 08/19/18 01:42 4 MG Sodium Chloride 100 ml ONCE ONCE IV 08/19/18 02:45 08/19/18 02:46 DC 08/19/18 02:40 80 ML Vital Signs/I&O 08/19/18 01:20 Temp 97.3 Pulse 87 Resp 18 B/P (MAP) 117/89 (98) O2 Delivery Room Air Blood Pressure Mean: 98 Progress Progress Note : Progress Note Seen and evaluated. IV, labs, UA, UCG, normal saline 1 L bolus, Zofran 4 mg IV and fentanyl 50 g IV ordered. Monitor patient. 0351: Patient is much better. CT results noted. Patient will need follow-up with surgeon for further evaluation of the gallbladder and potentially liver. I did discuss with her about calling Dr. Lockwood in the morning. I will send a copy of the chart to him and patient will call in the morning. Discharged home with return precautions. Patient verbalize understanding of instructions and agreement with plan. Diagnostic Imaging Diagonstic Imaging: CT Plain Films/CT/US/NM/MRI: abdomen, pelvis Comments Somewhat heterogenous liver. Correlate with liver enzymes. Otherwise unremarkable CT abdomen and pelvis. Reviewed: [facility] Impression Primary Impression: Right upper quadrant abdominal pain Disposition: HOME, SELF-CARE Condition: Improved Departure-Patient Inst. Decision time for Depature: 03:53 Referrals: NO,LOCAL PHYSICIAN (PCP) Primary Care Physician ANA LAURA LICONA MD (Family) Primary Care Physician JORDAN LOCKWOOD DO Patient Instructions: Acute Abdomen (Belly Pain), Adult (DC) Add. Discharge Instructions: All discharge instructions reviewed with patient and/or family. Voiced understanding. Avoid fatty foods. Call Dr. Lockwood's office in the morning for appointment this week for recheck and further evaluation and possible outpatient ultrasound and/or HIDA scan as indicated. Drink plenty of fluids. You may take Tylenol/acetaminophen 1000 mg every 8 hours as needed for pain. You may take ibuprofen 600 mg every 8 hours as needed for pain. Return for worse pain, fever, vomiting, weakness, breathing problems or other concerns as needed. Copy Copies To 1: JORDAN LOCKWOOD DO Copies To 2: ANA LAURA LICONA MD, TIMOTHY D MD Aug 19, 2018 02:02
[2018-08-19 02:03] LABS: ALANINE AMINOTRANSFERASE 138 U/L (0-55); ALBUMIN 4.4 GM/DL (3.2-4.5); ALKALINE PHOSPHATASE 55 U/L (40-136); BILIRUBIN,TOTAL 0.3 MG/DL (0.1-1.0); BUN/CREATININE RATIO 18; CALCIUM 9.3 MG/DL (8.5-10.1); CARBON DIOXIDE 26 MMOL/L (21-32); CHLORIDE 106 MMOL/L (98-107); CREATININE SERUM 0.71 MG/DL (0.60-1.30); GFR ESTIMATED > 60; GLUCOSE 114 MG/DL (70-105); LIPASE 15 U/L (8-78); MAGNESIUM 2.5 MG/DL (1.8-2.4); POTASSIUM 3.6 MMOL/L (3.6-5.0); SODIUM 142 MMOL/L (135-145); TOTAL PROTEIN 6.7 GM/DL (6.4-8.2)
[2018-08-19 02:11] LABS: BAND NEUTROPHILS 1 %; EOSINOPHILS % (MANUAL) 1 %; LYMPHOCYTES % (MANUAL) 8 %; MONOCYTES % (MANUAL) 9 %; NEUTROPHILS % (MANUAL) 81 %; RBC MORPH NORMAL
[2018-08-19] MEDS ORDERED: IOHEXOL 350 MG/ML 100 ML (OMNIPAQUE 350) VIAL IV ONE (02:45)
[2018-08-19] MEDS ORDERED: NS 100 ML (IVPB) BAG IV ONE (02:45)
[2018-08-19] MEDS ORDERED: HOLD METFORMIN - RECEIVED CONTRAST 20 ML VIAL IV SCH (02:45)
[2018-08-19 04:02] VITALS: BP 115/85
--- NOTE | 2018-08-19 06:26 | Diagnostic Imaging Report ---
PROCEDURE: CT abdomen and pelvis with contrast. TECHNIQUE: Multiple contiguous axial images were obtained through the abdomen and pelvis after administration of intravenous contrast. Auto Exposure Controls were utilized during the CT exam to meet ALARA standards for radiation dose reduction. INDICATION: Right lower quadrant pain There are no prior CT examinations available for comparison. The appendix was not particularly well-visualized but the appendix is not seen to be abnormally thickened. There are no indirect signs of acute appendicitis. There is a very small amount of free fluid low in the pelvis. This is nonspecific. The uterus and ovaries are generally unremarkable. The urinary bladder shows no definite abnormality. The liver is prominent and shows no focal abnormality. On the initial arterial phase the liver did have somewhat of a heterogeneous appearance. This is of uncertain etiology. Correlation with patient's liver enzymes would be recommended. Also, there does seem to be a 2.1 x 2.2 CM flash hemangioma in the left lobe of the liver. Ultrasound would be recommended for further evaluation of this finding. There is no evidence for cholelithiasis or acute cholecystitis and the common bile duct is not dilated. There may be a trace amount of fluid about the gallbladder. If further evaluation of the gallbladder is desired, then ultrasound would be recommended. The spleen, pancreas, adrenals, kidneys, aorta and inferior vena cava show no sign of an acute abnormality. The stomach is not well-distended and consequently difficult to assess. The lung bases are clear. The bone windows show no evidence for a fracture or for a destructive lesion. IMPRESSION: 1. There is no evidence for appendicitis. 2. There is no sign of cholelithiasis and the gallbladder was not thickened. However, there may be a trace amount of fluid about the gallbladder. There also appears to be a 2.1 x 2.2 CM flash hemangioma in the left lobe of the liver. Ultrasound would be recommended for further evaluation both of the liver and gallbladder. 3. There is a small amount of nonspecific free fluid in the pelvis. 4. These results were discussed with Dr. Flores at 5:54 AM on 08/19/2018. Dictated by: Dictated on workstation # [id number]
== END 2018-08-19 04:03 | disposition home or self-care (01) ==
LOC: EDUNIT# 01:06 → ER 01:09
DX: R10.11 Right upper quadrant pain (principal); F90.9 Attention-deficit hyperactivity disorder, unspecified type; F32.9 Major depressive disorder, single episode, unspecified; F12.10 Cannabis abuse, uncomplicated; F17.210 Nicotine dependence, cigarettes, uncomplicated; Z98.890 Other specified postprocedural states; Z80.3 Family history of malignant neoplasm of breast; Z86.19 Personal history of other infectious and parasitic diseases
CPT/HCPCS: 36415; 74177; 80053; 81000; 83690; 83735; 84703; 85007; 85027; 87088; 96361; 96374; 96375

== ENCOUNTER → 2018-09-11 | Outpatient (CLI) | payer MEDICARE ==
--- NOTE | 2018-09-11 10:01 | Diagnostic Imaging Report ---
PROCEDURE: US Gallbladder. TECHNIQUE: Multiple real-time grayscale images were obtained over the right upper quadrant in various projections. INDICATION: Right upper quadrant pain. FINDINGS: The liver is normal size at 16.3 cm. No discrete liver mass is identified. The portal vein is patent and shows normal direction of flow. The gallbladder does contain small stones. No wall thickening or biliary ductal dilatation is seen. The pancreas is unremarkable. Right kidney is without evidence of calculi or hydronephrosis. There is no ascites. IMPRESSION: Cholelithiasis without evidence of acute cholecystitis. Dictated by: Dictated on workstation # [id number]
== END ==
LOC: RAD 08:41
PROVIDERS: ATTEND Surgery
DX: K80.20 Calculus of gallbladder without cholecystitis without obstruction (principal)
CPT/HCPCS: 76705

== ENCOUNTER 2018-11-19 10:45 | Outpatient (CLI) | payer MEDICARE ==
[~2018-11-19] VITALS: Ht 167.6 cm; Wt 83.9 kg
[2018-11-20] MEDS ORDERED: DOCU-143 PO (08:41)
[2018-11-20] MEDS ORDERED: ACHD5005 PO (08:41)
== END 2018-11-19 11:01 | disposition home or self-care (01) ==
LOC: PREOP 10:45
PROVIDERS: ATTEND Surgery
DX: Z01.818 Encounter for other preprocedural examination (principal)

== ENCOUNTER 2018-11-20 06:08 | Day surgery (SDC) | payer MEDICARE ==
[~2018-11-20] VITALS: Ht 167.6 cm; Wt 77.7 kg
[2018-11-20] VITALS (12 sets, daily range): BP systolic 93–119; BP diastolic 53–90
[2018-11-20] MEDS ORDERED: ceFAZolin INJECTION 1,000 MG in WATER (STERILE) FOR INJECTION 10 ML IV ONE (06:30)
[2018-11-20] MEDS: LACTATED RINGERS 1,000 ML IV PRN ×2 (06:40→08:15)
[2018-11-20 06:45] LABS: BASOPHILS % (AUTO) 0 % (0-10); EOSINOPHILS # (AUTO) 0.1 10^3/uL (0.0-0.3); EOSINOPHILS % (AUTO) 2 % (0-10); HEMATOCRIT 41 % (35-52); HEMOGLOBIN 13.7 G/DL (11.5-16.0); LYMPHOCYTES # (AUTO) 3.5 X 10^3 (1.0-4.0); LYMPHOCYTES % (AUTO) 38 % (12-44); MEAN CORPUSCULAR HEMOGLOBIN 30 PG (25-34); MEAN CORPUSCULAR HGB CONC 34 G/DL (32-36); MEAN CORPUSCULAR VOLUME 88 FL (80-99); MEAN PLATELET VOLUME 9.5 FL (7.4-10.4); MONOCYTES # (AUTO) 0.8 X 10^3 (0.0-1.0); MONOCYTES % (AUTO) 9 % (0-12); NEUTROPHILS # (AUTO) 4.6 X 10^3 (1.8-7.8); NEUTROPHILS % (AUTO) 51 % (42-75); PLATELET COUNT 253 10^3/uL (130-400); RED CELL DISTRIBUTION WIDTH 13.7 % (10.0-14.5)
[2018-11-20] MEDS ORDERED: FAMOTIDINE 20MG/2ML IV (PEPCID) IV ONE (06:45)
[2018-11-20] MEDS ORDERED: CATHETER FLUSH 10 ML SYR IV PRN (06:45)
[2018-11-20] MEDS ORDERED: IOPAMIDOL 61% 30 ML (ISOVUE 300) VIAL IV ONE (07:13)
[2018-11-20] MEDS ORDERED: BUP/EPI 0.25% 1:200,000 (MARCAINE) 10 ML VIAL IJ ONE (07:13)
[2018-11-20] MEDS ORDERED: fentaNYL INJECTION 100 MCG/2 ML AMP ONE (07:40)
--- NOTE | 2018-11-20 07:43 | Progress Note-Pre Operative ---
Pre-Operative Progress Note H&P Reviewed The H&P was reviewed, patient examined and no changes noted. Date Seen by Provider: Nov 20, 2018 Time Seen by Provider: 07:35 Date H&P Reviewed: Nov 20, 2018 Time H&P Reviewed: 07:35 Pre-Operative Diagnosis: symptomatic cholelithiasis JORDAN WOLF DO Nov 20, 2018 07:43
[2018-11-20] MEDS ORDERED: MIDAZOLAM 2 MG/2 ML (VERSED) VIAL ONE (08:06)
[2018-11-20] MEDS ORDERED: ONDANSETRON 4 MG/2 ML (SDV) Z0FRAN ONE (08:07)
[2018-11-20] MEDS ORDERED: DEXAMETHASONE 10 MG/ML (DECADRON) 1 ML VIAL ONE (08:07)
[2018-11-20] MEDS ORDERED: GLYCOPYRROLATE 0.2 MG/ML (ROBINUL) 2 ML VIAL ONE (08:07)
[2018-11-20] MEDS ORDERED: proPOfol 200 MG/20 ML (DIPRIVAN) VIAL IV ONE (08:07)
[2018-11-20] MEDS ORDERED: SEVOFLURANE (ULTANE) 15 ML INHAL SOLN ONE ×5 (08:07→08:55)
[2018-11-20] MEDS ORDERED: LIDOCAINE PF 2% 5 ML (XYLOCAINE) VIAL ONE (08:07)
[2018-11-20] MEDS ORDERED: NEOSTIGMINE 3 MG/3 ML VIAL ONE (08:07)
[2018-11-20] MEDS ORDERED: PHENYLEPHRINE 100 MCG/ML 10 ML (ANESTHESIA) SYR ONE (08:08)
[2018-11-20] MEDS ORDERED: ROCURONIUM 10 MG/ML 5 ML SYRINGE IV ONE (08:18)
--- NOTE | 2018-11-20 08:40 | Progress Note-Post Operative ---
Post-Operative Progess Note Surgeon (s)/Quantity Surveyor (s) Surgeon JORDAN WOLF DO Quantity Surveyor: Dr. Palomino Pre-Operative Diagnosis symptomatic cholelithiasis Post-Operative Diagnosis same Procedure & Operative Findings Date of Procedure 11/20/18 Procedure Performed/Findings lap brendan c ioc Anesthesia Type gen Estimated Blood Loss Estimated blood loss (mL): min Specimens/Packing Specimens Removed gallbladder JORDAN WOLF DO Nov 20, 2018 08:40
[2018-11-20] MEDS ORDERED: ACHD5005 PO (08:41)
[2018-11-20] MEDS ORDERED: DOCU-143 PO (08:41)
--- NOTE | 2018-11-20 08:42 | Discharge Inst-Simple/Standard ---
Discharge Inst-Standard Discharge Medications New, Converted or Re-Newed RX: RX on Chart Patient Instructions/Follow Up Plan of Care/Instructions/FU: 2-3 weeks Mandie Activity as Tolerated: No Discharge Diet: Regular Diet Other Inst to Patient Follow up Appt: Make appointment for 2-3 weeks. Instructions: No lifting greater than 10 pounds. No strenuous activity. May shower in 24 hours, no tub bath or soaking. Use incentive spirometer at home as directed. No Smoking Skin/Wound Care: You have special glue over incisions it will fall off on its own. Symptoms to Report: Appetite Changes, Extremity Discoloration, Numbness/Tingling, Swelling Increased, Bleeding Excessive, Eyesight Changes, Pain Increased, Urine Color Change, Constipation(Persistent), Fever over 101 degree F, Pain/Pressure in c hest, Urinating Difficulty, Cough Up/Vomit Blood, Heart Beat Irreg/Pounding, Pain/Pressure in jaw, Vaginal Bleeding Increase, Cramps in feet or legs, Lightheadedness, Pain/Pressure in shoulder, Diarrhea(Persistent), Memory Changes Suddenly, Questions/Concerns, Weight gain consecutive days, Dizziness/Fainting, Nausea/Vomiting, Shortness of Breath, Weight gain over 2 pounds. If eyes or skin turn yellow notify physician. If questions or concerns contact your physician Or seek help at emergency department. JORDAN WOLF DO Nov 20, 2018 08:42
[2018-11-20] MEDS ORDERED: morphine INJ 10 MG/ML 1ML (SYR OR VIAL) IVP ONE (09:15)
[2018-11-20] MEDS ORDERED: MEPERIDINE (DEMEROL) INJ 50 MG/ML IVP ONE (09:15)
[2018-11-20] MEDS ORDERED: ONDANSETRON 4 MG/2 ML (SDV) Z0FRAN IVP PRN (09:15)
[2018-11-20] MEDS ORDERED: HYDROcodone/APAP 5 MG/325 MG (LORTAB) TAB ONE (10:01)
[2018-11-20] MEDS ORDERED: HYDROcodone/APAP 5 MG/325 MG (LORTAB) TAB PO ONE (10:15)
--- NOTE | 2018-11-20 13:22 | Anesthesia-General Post-Op ---
General Patient Condition Mental Status/LOC: Same as Preop Cardiovascular: Satisfactory Nausea/Vomiting: Absent Respiratory: Satisfactory Pain: Controlled Complications: Absent Post Op Complications Complications None Follow Up Care/Instructions Patient Instructions None needed. Anesthesia/Patient Condition Patient Condition Patient is doing well, no complaints, stable vital signs, no apparent adverse anesthesia problems. No complications reported per nursing. TRISH BROOKS CRNA Nov 20, 2018 13:22
--- NOTE | 2018-11-20 13:50 | Diagnostic Imaging Report ---
INDICATION: Fluoroscopy during intraoperative cholangiogram. The patient does have cholelithiasis. Fluoroscopy was provided during intraoperative cholangiogram. 12 seconds of fluoroscopic time was utilized. Images demonstrate contrast being injected via the cystic duct remnant. Extrahepatic bile duct is without evidence of a filling defect. There is contrast flowing into the duodenum. Intrahepatic bile ducts were not well opacified. IMPRESSION: Fluoroscopy during intraoperative cholangiogram. Dictated by: Dictated on workstation # [id number]
--- NOTE | 2018-11-20 15:50 | OPERATIVE REPORT ---
DATE OF SERVICE: 11/20/2018 PREOPERATIVE DIAGNOSIS: Symptomatic cholelithiasis. POSTOPERATIVE DIAGNOSIS: Symptomatic cholelithiasis. PROCEDURE: Laparoscopic cholecystectomy with intraoperative cholangiogram. SURGEON: Jordan Lockwood DO BOSS MINER: Dr. Palomino, assisted in retraction, dissection and closure. ANESTHESIA: General. ESTIMATED BLOOD LOSS: Minimal. COMPLICATIONS: None. INDICATIONS: The patient is a 23-year-old female with right upper quadrant abdominal pain and workup demonstrated gallstones. She understands risks and benefits of procedure and wished to proceed with procedure. Consent was signed in the chart. DESCRIPTION OF PROCEDURE: The patient was taken to the operating suite. She was prepped and draped in sterile fashion. Surgical pause was performed. A 12 mm incision was made at the umbilicus. Just above it, cautery was used to dissect down to the fascia, which was then scored, grasped and elevated. The abdomen was entered. An 0 Vicryl was placed in a [id number] fashion for closure at the end of the case. Balloon trocar was inserted and pneumoperitoneum was achieved. Under direct visualization of the laparoscope, a 5 mm trocar was placed in subxiphoid region and two 5 mm trocars were placed in the right upper quadrant. Gallbladder was grasped, elevated multiple adhesions to the gallbladder of the omentum, which was then taken down. The cystic duct and cystic artery were then dissected out. Clips were placed on the proximal and distal portion of the cystic artery and the distal portion of the cystic duct. The cystic duct was then partially transected. Arrow catheter was inserted and cholangiogram was performed. There were no filling defects. Contrast made its way into the duodenum without difficulty. The catheter was removed. Clips were placed on the proximal portion of the cystic duct and the duct and the artery. The artery was then transected. Hook cautery used to dissect the gallbladder from the gallbladder fossa achieving hemostasis. Once removed, it was placed in an Endobag and removed through the 12 mm trocar site. The abdomen was irrigated with copious amounts of irrigation and suction. The trocars were removed. The 0 Vicryl was tied for closure at the 12 mm fascial defect. The skin was then closed using 4-0 Monocryl in subcuticular fashion. The abdomen was washed and dried and Skin Affix was placed over the incisions. The patient tolerated procedure well without any complications. She was taken to recovery room in stable condition. Job ID: [id number] DocumentID: [id number] Dictated Date: 11/20/2018 14:09:54 Banking Attorney Date: 11/20/2018 15:50:04 Dictated By: JORDAN LOCKWOOD DO
== END 2018-11-20 11:20 | disposition home or self-care (01) ==
LOC: SDC 06:08
PROVIDERS: ATTEND Surgery
DX: K80.10 Calculus of gallbladder with chronic cholecystitis without obstruction (principal); K21.9 Gastro-esophageal reflux disease without esophagitis; Q35.9 Cleft palate, unspecified; G43.909 Migraine, unspecified, not intractable, without status migrainosus; F32.9 Major depressive disorder, single episode, unspecified; F41.9 Anxiety disorder, unspecified; F90.9 Attention-deficit hyperactivity disorder, unspecified type; F17.210 Nicotine dependence, cigarettes, uncomplicated; Z79.899 Other long term (current) drug therapy; Z83.3 Family history of diabetes mellitus; Z82.0 Family history of epilepsy and other diseases of the nervous system; Z79.891 Long term (current) use of opiate analgesic
CPT/HCPCS: 36415; 84703; 85025; 87081; 88304

== ENCOUNTER 2020-04-12 15:12 | Outpatient (CLI) | payer MEDICARE ==
[~2020-04-12] VITALS: Ht 170.2 cm; Wt 75.6 kg
[~2020-04-12 15:12] MED LIST changes: +ACHD5005 PO
--- NOTE | 2020-04-12 15:18 | NUR ---
NAVNEET CARCAMO presented to unit via ambluation from ED, accompanied by self, with c/o VAGINAL BLEEDING. NAVNEET CARCAMO weighed, gowned, voided, and to bed. EFHM and TOCO applied, VS taken. NAVNEET CARCAMO oriented to bed controls, call light, TV, heat, and A/C controls.
[2020-04-12 15:45] VITALS: BP 122/61
[2020-04-12 16:43] LABS: BILIRUBIN,URINE NEGATIVE (NEGATIVE); CLARITY,URINE CLEAR; COLOR,URINE YELLOW; GLUCOSE, URINE (UA) NEGATIVE (NEGATIVE); KETONES,URINE TRACE (NEGATIVE); LEUKOCYTE ESTERASE ,URINE 1+ (NEGATIVE); NITRITE,URINE NEGATIVE (NEGATIVE); PH,URINE 7.5 (5-9); PROTEIN,URINE NEGATIVE (NEGATIVE)
[2020-04-12 16:54] LABS: RBC,URINE 0-2 /HPF; WBC,URINE 25-50 /HPF
[2020-04-12 16:55] LABS: BACTERIA,URINE TRACE /HPF
--- NOTE | 2020-04-12 17:07 | NUR ---
dr bettencourt notified of patient status and lab results. new orders received.
--- NOTE | 2020-04-12 17:40 | NUR ---
out of WS via ambulation to home self care with d/c instructions and recautions in hand. no s/s of distress noted.
--- NOTE | 2020-04-13 08:05 | Physician Query-Final Dx ---
Clinic Account Progress/Dx Physician Query: Please give diagnosis Please include # weeks gestation Date of Service Apr 12, 2020 at 15:12 ADRIANA DAWSON Apr 13, 2020 08:04
== END 2020-04-12 17:40 | disposition home or self-care (01) ==
LOC: WSo 15:12 → LDRP 15:13 → WSo 17:40
PROVIDERS: ATTEND Family Medicine
DX: O46.90 Antepartum hemorrhage, unspecified, unspecified trimester (principal); Z3A.00 Weeks of gestation of pregnancy not specified
CPT/HCPCS: 81000; 87088; 99213

== ENCOUNTER 2020-04-13 20:00 | Outpatient (CLI) | payer MEDICARE ==
[~2020-04-13] VITALS: Ht 170.2 cm; Wt 75.0 kg
--- NOTE | 2020-04-13 20:10 | NUR ---
NAVNEET CARCAMO presented to unit via AMBULATION from ED, unaccompanied , with c/o VAGINAL BLEEDING. NAVNEET CARCAMO weighed, gowned, voided, and to bed. EFHM and TOCO applied, VS taken. NAVNEET CARCAMO oriented to bed controls, call light, TV, heat, and A/C controls.
[2020-04-13 20:20] VITALS: BP 99/50
[2020-04-13] MEDS ORDERED: CEPHALEXIN 250 MG (KEFLEX) CAP PO ONE ×2 (20:29→20:30)
--- NOTE | 2020-04-13 20:40 | NUR ---
D/C instructions given & explained per H. Malra, RN, pt. verbalized understanding & signed, copy of D/C instructions to pt. Again stressed the importance of going to scheduled appt & picking up & taking abx, pt. verbalized understanding. Pt. left WS ambulatory on own to home via private vehicle.
--- NOTE | 2020-04-14 07:52 | Physician Query-Final Dx ---
Clinic Account Progress/Dx Physician Query: Please give diagnosis Please include # weeks gestation Date of Service Apr 13, 2020 at 20:00 ADRIANA DAWSON Apr 14, 2020 07:52
== END 2020-04-13 20:40 | disposition home or self-care (01) ==
LOC: WSo 20:00 → LDRP 20:01 → WSo 20:40
PROVIDERS: ATTEND Family Medicine
DX: O46.92 Antepartum hemorrhage, unspecified, second trimester (principal); Z3A.23 23 weeks gestation of pregnancy

== ENCOUNTER 2020-07-12 05:30 | Outpatient (CLI) | payer MEDICARE ==
[~2020-07-12] VITALS: Ht 170.2 cm; Wt 75.5 kg
[2020-07-12] MEDS ORDERED: PNV1TABL81 PO (13:59)
== END 2020-07-12 15:00 | disposition home or self-care (01) ==
LOC: PREOP 05:30
PROVIDERS: ATTEND Obstetrics & Gynecology
DX: Z01.818 Encounter for other preprocedural examination (principal)

== ENCOUNTER 2020-07-19 11:00 | Inpatient (IN) | payer MEDICARE ==
[~2020-07-19] VITALS: Ht 170.2 cm; Wt 79.3 kg
[~2020-07-19 11:00] MED LIST changes: +PNV1TABL81 PO
[2020-07-29] VITALS (11 sets, daily range): BP systolic 102–127; BP diastolic 60–79
[2020-07-29] MEDS ORDERED: METOCLOPRAMIDE INJ 10 MG/2 ML (REGLAN) ONE (01:53)
[2020-07-29] MEDS ORDERED: FAMOTIDINE 20MG/2ML IV (PEPCID) ONE (01:54)
[2020-07-29] MEDS ORDERED: CITRIC ACID/SOB CIT (BICITRA) 30 ML UDC ONE (01:54)
[2020-07-29] MEDS ORDERED: ceFAZolin 2 GM IV Premixed 50 ML ONE (01:57)
[2020-07-29] MEDS ORDERED: CATHETER FLUSH 10 ML SYR IV PRN (06:30)
[2020-07-29] MEDS ORDERED: FAMOTIDINE 20MG/2ML IV (PEPCID) IV ONE (06:30)
[2020-07-29] MEDS ORDERED: CITRIC ACID/SOB CIT (BICITRA) 30 ML UDC PO ONE (06:30)
[2020-07-29] MEDS ORDERED: LACTATED RINGERS 1,000 ML IV PRN ×2 (06:30)
[2020-07-29] MEDS ORDERED: METOCLOPRAMIDE INJ 10 MG/2 ML (REGLAN) IV ONE (06:30)
[2020-07-29] MEDS ORDERED: ceFAZolin 2 GM IV Premixed 50 ML IV ONE (06:30)
[2020-07-29 06:43] LABS: BASOPHILS % (AUTO) 0 % (0-10); EOSINOPHILS # (AUTO) 0.1 10^3/uL (0.0-0.3); EOSINOPHILS % (AUTO) 1 % (0-10); HEMATOCRIT 34 % (35-52); HEMOGLOBIN 11.6 g/dL (11.5-16.0); LYMPHOCYTES # (AUTO) 2.7 10^3/uL (1.0-4.0); LYMPHOCYTES % (AUTO) 21 % (12-44); MEAN CORPUSCULAR HEMOGLOBIN 31 pg (25-34); MEAN CORPUSCULAR HGB CONC 34 g/dL (32-36); MEAN CORPUSCULAR VOLUME 92 fL (80-99); MEAN PLATELET VOLUME 10.2 fL (9.0-12.2); MONOCYTES # (AUTO) 1.1 10^3/uL (0.0-1.0); MONOCYTES % (AUTO) 8 % (0-12); NEUTROPHILS # (AUTO) 9.1 10^3/uL (1.8-7.8); NEUTROPHILS % (AUTO) 69 % (42-75); PLATELET COUNT 394 10^3/uL (130-400); WHITE BLOOD COUNT 13.2 10^3/uL (4.3-11.0)
[2020-07-29 06:49] LABS: BILIRUBIN,URINE NEGATIVE (NEGATIVE); CLARITY,URINE CLEAR; COLOR,URINE YELLOW; GLUCOSE, URINE (UA) NEGATIVE (NEGATIVE); KETONES,URINE NEGATIVE (NEGATIVE); LEUKOCYTE ESTERASE ,URINE 1+ (NEGATIVE); NITRITE,URINE NEGATIVE (NEGATIVE); PH,URINE 7.5 (5-9); PROTEIN,URINE NEGATIVE (NEGATIVE)
[2020-07-29] MEDS ORDERED: OXYTOCIN PRE-MIX DRIP 500 ML IV ONE ×2 (06:50→07:49)
[2020-07-29] MEDS ORDERED: fentaNYL INJ 100 MCG/2 ML AMP ONE (06:50)
[2020-07-29] MEDS ORDERED: ROPIVACAINE 5MG/ML 30ML VIAL ONE (06:51)
[2020-07-29 07:04] LABS: BACTERIA,URINE FEW /HPF
--- NOTE | 2020-07-29 07:08 | History & Physical-OB ---
OB - Chief Complaint & HPI Date/Time Date of Admission: Date of Admission: July 29, 2020 at 06:17 Date seen by a Provider: July 29, 2020 Time Seen by a Provider: 07:00 Chief Complaint/History OB-Reason for Admission/Chief: Section Hx : 2 Hx Para: 1 Expected Date of Delivery: August 05, 2020 Gestational Age in Weeks: 39 Indication for : desires repeat Admission Nurse Assessment Rev: Yes History of Labs O-/- HIV - HbSAg - Rub I syphilis NR + gonorrhea, treated and ABDIFATAH neg Allergies and Home Medications Allergies Coded Allergies: No Known Drug Allergies (Unverified , 11/19/18) Home Medications Pnv No.122/Iron/Folic Acid 1 Each Tablet, 1 EACH PO DAILY, (Reported) Patient Home Medication List Home Medication List Reviewed: Yes OB - History Hx of Present Ultrasounds: Normal mid trimester US Obstetrical Complications: None Medical Complications: None Information Induced Hypertension: No Maternal Gestational Diabetes: No Hemorrhage: No Obstetrical History Hx Termination: No Hx Multiple Gestation: No Hx Ectopic : No Hx Stillbirth: No Hx Complication: No Hx Induced Hypertens: No Hx Maternal Gestational Diabet: No Hx Hemorrhage: No Delivery History Hx Dystocia: No Hx Forceps Assisted Delivery: No Hx Vacuum Extraction Assisted: No Hx Placenta Abnormality: No Hx Distress: No Hx Large For Gestational Age I: No Hx Small for Gestational Age I: No Hx Section: Yes Hx Vaginal Delivery Post C-Sec: No Hx Blood Disorders: No Adverse Rxn to Tranfusion: No (N/A) Patient Past Medical History see above Social History/Family History 2nd Hand Smoke Exposure: No Immunizations Hepatitis A: Yes Hepatitis B: Yes Tetanus Booster (TDap): Less than 5yrs (06/16/2020) Date of Influenza Vaccine: Feb 11, 2020 Rubella: immune RPR/VDRL: Negative GBS Status: Negative HBsAG: Negative OB - Admission Exam Physical Exam Heart: Rhythm Normal Lungs: Clear Abdomen: Gravid Cervical Dilatation: other (not examined) Membranes: Intact Heart Rate: 120's Accelerations: Accelerations Present Decelerations: No Decelerations Short Term Variability: Present Mold Design Engineer Variability: Average (6-25) Contractions on Admission: < 5 Minutes Apart Labs Laboratory Tests Test 5/14/21 06:20 07/29/20 06:25 Range/Units White Blood Count 13.2 H 4.3-11.0 10^3/uL Red Blood Count 3.72 L 3.80-5.11 10^6/uL Hemoglobin 11.6 11.5-16.0 g/dL Hematocrit 34 L 35-52 % Mean Corpuscular Volume 92 80-99 fL Mean Corpuscular Hemoglobin 31 25-34 pg Mean Corpuscular Hemoglobin Concent 34 32-36 g/dL Red Cell Distribution Width 13.3 10.0-14.5 % Platelet Count 394 130-400 10^3/uL Mean Platelet Volume 10.2 9.0-12.2 fL Immature Granulocyte % (Auto) 2 % Neutrophils (%) (Auto) 69 42-75 % Lymphocytes (%) (Auto) 21 12-44 % Monocytes (%) (Auto) 8 0-12 % Eosinophils (%) (Auto) 1 0-10 % Basophils (%) (Auto) 0 0-10 % Neutrophils # (Auto) 9.1 H 1.8-7.8 10^3/uL Lymphocytes # (Auto) 2.7 1.0-4.0 10^3/uL Monocytes # (Auto) 1.1 H 0.0-1.0 10^3/uL Eosinophils # (Auto) 0.1 0.0-0.3 10^3/uL Basophils # (Auto) 0.0 0.0-0.1 10^3/uL Immature Granulocyte # (Auto) 0.2 H 0.0-0.1 10^3/uL OB - Assessment/Plan/Diagnosis Assessment Assessment: section Admission Dx 1. Previous section at 39 weeks 2. malpresentation Plan - repeat section today, 07/29/2020 Risks of bleeding, infection, injury to bowel, bladder and ureter explained to the patient and SO in the office and discussed today. consent has been signed. Plan CS today under spinal anesthesia Prophylactic antibiotics and SCDs will be used. Peds - [facility] Admission Status: Inpatient Order (span 2 midnights) Reason for Inpatient Admission: section Plan Plan: Section MINDY DIAZ DO July 29, 2020 07:08
--- NOTE | 2020-07-29 08:33 | Cesarean Section Operative ---
Procedure Procedure Note Pre-operative Diagnosis: Lara Loyd is a 25 /Para 2 / 1, Gestational Age 39 weeks with history of previous section/ previous breech Post-operative Diagnosis: same, vertex Procedure: Repeat low transverse section Physician: MINDY Goodman, MS III Estimated blood loss: 500 mL Disposition: stable Findings: Viable female , Apgars 8/9, weight 7#13 ounces, intact placenta, 3vc, normal appearing uterus, tubes, and ovaries. Indications:Lara Loyd is a 25 /Para 2 / 1,Gestational Age 39 weeks with history of previous section/ previous breech Procedure Details: The patient was seen in pre-op and the procedure was discussed with the patient in full, including the risks, benefits, and alternatives. All questions were answered. The patient was taken to the operating room and a time out was performed, verifying patient and procedure. After spinal anesthesia was placed by our anesthesia colleagues, the patient was placed in the dorsal supine with leftward tilt for uterine displacement.~ Her abdomen was then prepped and draped in the typical sterile fashion. A Pfannenstiel skin incision was made using a scalpel and carried down through the underlying fascia. The fascia was incised in the midline and tented up using Guilherme clamps. On both the inferior and superior fascia side the rectus muscle was dissected off bluntly and sharply using Lockwood scissors. The peritoneum was identified and entered bluntly in the midline. This was then stretched laterally using manual strength. After entering the abdominal cavity and confirming lack of intraperitoneal adhesions, a large Juan Carlos retractor was placed and the lower uterine segment was visualized. A bladder flap was created with the use of Metzenbaum scissors.~ A scalpel was utilized to make a low transverse uterine incision. Amniotomy was performed with an Allis clamp with return of clear fluid. The 's head was grasped and brought to the level of the incision. Fundal pressure was applied and infant was delivered without difficulty. Mouth and nares were suctioned with bulb suction. After the umbilical cord was clamped and cut, the infant was handed off to the pediatric staff. A sample of cord blood was then obtained. The placenta was delivered intact via uterine massage. The uterus was exteriorized and cleared of all clots and debris. The uterine incision was closed using 0 Vicryl in a running locked fashion. A second imbricated layer was placed using 0 Vicryl in a running fashion as well. The uterus was flexed forward and the posterior rectouterine space was inspected and cleared of all clots and debris. Again the hysterotomy site was examined and hemostasis was observed. The bilateral tubes and ovaries appeared normal. The uterus was placed back into the abdominal cavity and abdominal gutters were cleared of all clots and debris. A final check of the uterine incision showed it to be hemostatic. The peritoneum was closed using 3-0 Vicryl in a running fashion. The fascia was closed with 0 VDS in a running fashion. The subcutaneous space was hemostatic, and irrigated. The subcutaneous space was closed with 0 Plain in several single interrupted stitches. The skin was then closed using 4-0 Monocryl in a running subcuticular fashion. The skin edges were reapproximated together and were hemostatic. A pressure dressing was applied. All sponge, lap and needle counts were correct at the end of the procedure per nursing. Vitals - Labs Vital Signs - I&O Vital Signs Date Time Temp Pulse Resp B/P (MAP) Pulse Ox O2 Delivery O2 Flow Rate FiO2 07/29/20 07:15 36.8 86 18 96 Room Air Labs Laboratory Tests 07/29/20 06:20: Urine Color YELLOW, Urine Clarity CLEAR, Urine pH 7.5, Urine Specific [place] 1.010L, Urine Protein NEGATIVE, Urine Glucose (UA) NEGATIVE, Urine Ketones NEGATIVE, Urine Nitrite NEGATIVE, Urine Bilirubin NEGATIVE, Urine Urobilinogen 0.2, Urine Leukocyte Esterase 1+H, Urine RBC (Auto) NEGATIVE, Urine RBC NONE, Urine WBC 2-5, Urine Squamous Epithelial Cells 2-5, Urine Crystals NONE, Urine Bacteria FEWH, Urine Casts NONE, Urine Mucus NEGATIVE, Urine Culture Indicated YES 07/29/20 06:25: White Blood Count 13.2H, Red Blood Count 3.72L, Hemoglobin 11.6, Hematocrit 34L, Mean Corpuscular Volume 92, Mean Corpuscular Hemoglobin 31, Mean Corpuscular Hemoglobin Concent 34, Red Cell Distribution Width 13.3, Platelet Count 394, Mean Platelet Volume 10.2, Immature Granulocyte % (Auto) 2, Neutrophils (%) (Auto) 69, Lymphocytes (%) (Auto) 21, Monocytes (%) (Auto) 8, Eosinophils (%) (Auto) 1, Basophils (%) (Auto) 0, Neutrophils # (Auto) 9.1H, Lymphocytes # (Auto) 2.7, Monocytes # (Auto) 1.1H, Eosinophils # (Auto) 0.1, Basophils # (Auto) 0.0, Immature Granulocyte # (Auto) 0.2H MINDY DIAZ DO July 29, 2020 08:33
[2020-07-29] MEDS ORDERED: IBUP-1773 PO (08:38)
[2020-07-29] MEDS ORDERED: OXYC5TAB PO (08:38)
[2020-07-29] MEDS ORDERED: ACET-93 PO (08:38)
[2020-07-29] MEDS ORDERED: DOCU-143 PO (08:38)
--- NOTE | 2020-07-29 08:39 | Discharge Inst-Women's Service ---
Discharge Inst-Women's Serv Depart Medication/Instructions New, Converted or Re-Newed RX: RX on Chart Final Diagnosis previous section Problems Reviewed?: Yes Consults/Follow Up Additional Follow Up: Yes (1 week for incision check with Dr. Mcgregor; [address] Kat carrera) Activity Activity: Activity as Tolerated Driving Instructions: No Driving for 1 Week NO SMOKING: NO SMOKING Nothing Inside Vagina: No Douching, No [place], No Tampons Diet Discharge Diet: No Restrictions Symptoms to Report to DrBethanie: Bleeding Excessive, Pain Increased, Fever Over 101 Degrees F, Vaginal Bleeding Increase, Cramps in Feet or Legs, Vaginal Discharge Foul For Any Problems or Questions: Contact Your Physician Skin/Wound Care Infection Signs and Symptoms: Increased Redness, Foul Odor of Wound, Increased Drainage, Skin Itchy or Has a Rash, Increased Swelling, Temperature Above 101 F Operative Area Clean and Dry: Keep Incision Clean/Dry Stitches/Gia/Dermabond: Dermabond Bathing Instructions: MINDY Harding DO July 29, 2020 08:39
[2020-07-29] MEDS ORDERED: morphine INJ 4 MG/ML 1 ML (VIAL/SYRINGE) IVP PRN (08:45)
[2020-07-29] MEDS ORDERED: TETANUS,DIPTH,PERTUSS P/F (BOOSTRIX) 0.5 ML VIAL IM SCH (08:45)
[2020-07-29] MEDS ORDERED: OXYTOCIN PRE-MIX DRIP 500 ML IV SCH (08:45)
[2020-07-29] MEDS ORDERED: MEASLES,MUMPS,RUBELLA 1 EA INJ SC SCH (08:45)
[2020-07-29] MEDS: KETOROLAC 30 MG/ML VIAL IV SCH ×3 (09:47→21:47)
[2020-07-29] MEDS: ACETAMINOPHEN 500 MG TAB (TYLENOL) PO SCH ×2 (14:00→21:47)
[2020-07-29] MEDS: DOCUSATE SODIUM 100 MG (COLACE) CAP PO SCH ×2 (19:57→20:50)
[2020-07-29] MEDS: CATHETER FLUSH 10 ML SYR IV SCH (19:57)
[2020-07-30 03:51] VITALS: BP 114/78
[2020-07-30] MEDS: KETOROLAC 30 MG/ML VIAL IV SCH (03:51)
[2020-07-30] MEDS: CATHETER FLUSH 10 ML SYR IV SCH (03:52)
[2020-07-30] MEDS ORDERED: MILK OF MAGNESIA 400 MG/5 ML 30 ML UDC PO PRN (05:00)
[2020-07-30 05:01] LABS: BASOPHILS # (AUTO) 0.1 10^3/uL (0.0-0.1); BASOPHILS % (AUTO) 0 % (0-10); EOSINOPHILS # (AUTO) 0.1 10^3/uL (0.0-0.3); EOSINOPHILS % (AUTO) 1 % (0-10); HEMATOCRIT 28 % (35-52); HEMOGLOBIN 9.7 g/dL (11.5-16.0); LYMPHOCYTES # (AUTO) 2.6 10^3/uL (1.0-4.0); LYMPHOCYTES % (AUTO) 14 % (12-44); MEAN CORPUSCULAR HEMOGLOBIN 32 pg (25-34); MEAN CORPUSCULAR HGB CONC 35 g/dL (32-36); MEAN CORPUSCULAR VOLUME 91 fL (80-99); MEAN PLATELET VOLUME 9.9 fL (9.0-12.2); MONOCYTES # (AUTO) 1.3 10^3/uL (0.0-1.0); MONOCYTES % (AUTO) 7 % (0-12); NEUTROPHILS % (AUTO) 77 % (42-75); PLATELET COUNT 340 10^3/uL (130-400); WHITE BLOOD COUNT 18.2 10^3/uL (4.3-11.0)
[2020-07-30] MEDS: ACETAMINOPHEN 500 MG TAB (TYLENOL) PO SCH ×3 (06:27→21:59)
--- NOTE | 2020-07-30 09:00 | Postpartum Progress Note ---
Note Note Day # 1 Subjective: This patient is POD 1 RLTCS performed by my partner, Dr. Mcgregor, yesterday morning. Patient is without complaints. Ambulating, voiding. Tolerating a regular diet without nausea or vomiting. Normal lochia. Pain is well controlled with oral pain medications. Objective: Physical Exam: General - Alert and oriented, no apparent distress Abdomen - Soft, appropriately tender to palpation, non-distended, fundus firm at umbilicus Extremities - no edema, negative Twin's bilaterally Incision- c/d/i Assessment: POD 1 RLTCS Acute blood loss anemia Plan: Routine care. Encourage breast feeding. Encourage ambulation. Ferrous sulfate supplementation. Plan for discharge tomorrow Vitals - Labs Vital Signs - I&O Vital Signs Date Time Temp Pulse Resp B/P (MAP) Pulse Ox O2 Delivery O2 Flow Rate FiO2 07/30/20 03:51 36.6 78 16 114/78 (90) 97 Room Air 07/29/20 23:51 36.7 82 16 110/66 (81) 98 Room Air 07/29/20 20:50 36.9 77 18 117/74 (88) 98 Room Air 07/29/20 16:20 37.0 73 18 127/79 (95) 98 Room Air 07/29/20 16:00 96 Room Air 07/29/20 10:54 36.3 65 16 121/69 (86) 98 Room Air 07/29/20 10:42 Room Air 07/29/20 09:51 36.6 58 18 116/70 (85) 100 Room Air 07/29/20 09:30 Room Air 07/29/20 09:21 Room Air 07/29/20 09:21 36.2 12 102/67 (79) 98 Room Air 07/29/20 09:06 36.5 12 106/68 (81) 98 Room Air 07/29/20 09:06 Room Air I & O 07/30/20 07:00 Intake Total 3490 ml Output Total 2650 ml Balance 840 ml Labs Laboratory Tests 07/30/20 04:48: White Blood Count 18.2H, Red Blood Count 3.06L, Hemoglobin 9.7L, Hematocrit 28L, Mean Corpuscular Volume 91, Mean Corpuscular Hemoglobin 32, Mean Corpuscular Hemoglobin Concent 35, Red Cell Distribution Width 13.5, Platelet Count 340, Mean Platelet Volume 9.9, Immature Granulocyte % (Auto) 1, Neutrophils (%) (Auto) 77H, Lymphocytes (%) (Auto) 14, Monocytes (%) (Auto) 7, Eosinophils (%) (Auto) 1, Basophils (%) (Auto) 0, Neutrophils # (Auto) 14.0H, Lymphocytes # (Auto) 2.6, Monocytes # (Auto) 1.3H, Eosinophils # (Auto) 0.1, Basophils # (Auto) 0.1, Immature Granulocyte # (Auto) 0.1 Microbiology 07/29/20 MRSA Screen - Final, Complete MRSA not isolated JL MIRANDA DO July 30, 2020 09:00
[2020-07-30] MEDS: DOCUSATE SODIUM 100 MG (COLACE) CAP PO SCH ×2 (09:14→20:22)
[2020-07-30] MEDS: FERROUS SULF 325 MG (IRON) TAB PO SCH (09:14)
[2020-07-30] MEDS: IBUPROFEN 600 MG (MOTRIN) TAB PO SCH ×3 (09:14→23:05)
[2020-07-30 09:15] VITALS: BP 112/67
--- NOTE | 2020-07-30 09:33 | Anesthesia-Regional Post-Op ---
Regional Patient Condition Mental Status: Alert, Oriented x3 Circulation: Same as Pre-Op Headache: Absent Sensation: Full Recovery Motor Block: Absent Post Op Complications Complications None Follow Up Care/Instructions Patient Instructions None needed. Anesthesia/Patient Condition Patient is doing well, no complaints, stable vital signs, no apparent adverse anesthesia problems. No complications reported per nursing. [place] [facility] [facility] [place] ALDAIR HANLEY CRNA July 30, 2020 09:33
[2020-07-30 13:55] VITALS: BP 118/73
[2020-07-30 20:25] VITALS: BP 121/76
[2020-07-30 23:05] VITALS: BP 117/67
[2020-07-31] MEDS: ACETAMINOPHEN 500 MG TAB (TYLENOL) PO SCH (05:34)
[2020-07-31] MEDS: IBUPROFEN 600 MG (MOTRIN) TAB PO SCH (05:34)
[2020-07-31 05:38] VITALS: BP 123/78
--- NOTE | 2020-07-31 07:45 | Postpartum Progress Note ---
Note Note Day # 2 Subjective: Patient is without complaints. Ambulating, voiding. Tolerating a regular diet without nausea or vomiting. Normal lochia. Pain is well controlled with oral pain medications. Objective: Physical Exam: General - Alert and oriented, no apparent distress Abdomen - Soft, appropriately tender to palpation, non-distended, fundus firm at umbilicus Extremities - no edema, negative Twin's bilaterally Incision- c/d/i Assessment: POD 2 RLTCS Acute blood loss anemia Plan: Routine care. Encourage breast feeding. Encourage ambulation. Ferrous sulfate supplementation. Plan for discharge today Vitals - Labs Vital Signs - I&O Vital Signs Date Time Temp Pulse Resp B/P (MAP) Pulse Ox O2 Delivery O2 Flow Rate FiO2 07/31/20 05:38 36.9 80 16 123/78 (93) 96 Room Air 07/30/20 23:05 36.3 66 16 117/67 (84) 96 Room Air 07/30/20 20:25 36.8 109 18 121/76 (91) 96 Room Air 07/30/20 13:55 36.8 86 18 118/73 (88) 94 Room Air 07/30/20 09:15 36.8 73 18 112/67 (82) 95 Room Air Labs Microbiology 07/29/20 MRSA Screen - Final, Complete MRSA not isolated 07/29/20 Urine Culture - Final, Complete 3 or more isolates Strep, Beta Hemolytic Group B JL MIRANDA DO July 31, 2020 07:45
[2020-07-31] MEDS: FERROUS SULF 325 MG (IRON) TAB PO SCH (08:03)
[2020-07-31] MEDS: DOCUSATE SODIUM 100 MG (COLACE) CAP PO SCH (08:03)
[2020-07-31 08:07] VITALS: BP 111/74
== END 2020-07-31 10:15 | disposition home or self-care (01) | DRG 787 ==
LOC: LDRP 07-29 06:17
PROVIDERS: ADMIT Obstetrics & Gynecology; ATTEND Obstetrics & Gynecology
PROC: 10D00Z1 Extraction of Products of Conception, Low, Open Approach (ICD-10-PCS; principal; 2020-07-29 07:20)
DX: O34.211 Maternal care for low transverse scar from previous cesarean delivery (principal); D62 Acute posthemorrhagic anemia; O90.81 Anemia of the puerperium; Z37.0 Single live birth; Z3A.39 39 weeks gestation of pregnancy
CPT/HCPCS: 36415; 81000; 83033; 85025; 86850; 86900; 86901; 87081; 87088; 94664

== ENCOUNTER 2020-07-20 05:14 | Outpatient (CLI) | payer MEDICARE ==
[~2020-07-20] VITALS: Ht 170.2 cm; Wt 79.3 kg
[2020-07-20 05:25] VITALS: BP 128/79
[2020-07-20 05:28] VITALS: BP 128/79
[2020-07-20 05:30] VITALS: BP 128/79
[2020-07-20 05:41] LABS: BILIRUBIN,URINE NEGATIVE (NEGATIVE); CLARITY,URINE CLEAR; COLOR,URINE YELLOW; GLUCOSE, URINE (UA) NEGATIVE (NEGATIVE); KETONES,URINE NEGATIVE (NEGATIVE); LEUKOCYTE ESTERASE ,URINE 3+ (NEGATIVE); NITRITE,URINE NEGATIVE (NEGATIVE); PROTEIN,URINE NEGATIVE (NEGATIVE)
[2020-07-20] MEDS ORDERED: LACTATED RINGERS 1,000 ML IV SCH (05:45)
[2020-07-20 05:54] LABS: BACTERIA,URINE FEW /HPF; SQUAMOUS EPITHELIAL CELL,UR 0-2 /HPF
[2020-07-20] MEDS ORDERED: D5 LR IV SOLUTION 1,000 ML IV ONE (06:45)
[2020-07-20] MEDS ORDERED: D5 LR IV SOLUTION 1,000 ML IV SCH (07:00)
[2020-07-20 07:15] VITALS: BP 108/61
--- NOTE | 2020-07-20 10:13 | Clinic Account Progress/Dx ---
Clinic Account Progress/Dx DIAGNOSIS: Date Seen by Provider: July 20, 2020 Time Seen by Provider: 10:12 37wk GA contractions, not in active labor previous FAWN BEACH DO July 20, 2020 10:13
== END 2020-07-20 11:20 | disposition home or self-care (01) ==
LOC: WSo 05:14 → LDRP 05:18 → WS 07:48 → WSo 11:20
PROVIDERS: ATTEND Family Medicine
DX: O62.9 Abnormality of forces of labor, unspecified (principal); Z3A.38 38 weeks gestation of pregnancy
CPT/HCPCS: 81000; 87077; 87088; 96360; 96361; G0463; 99214

== ENCOUNTER 2021-07-26 13:40 | Emergency (ER) | payer MEDICARE, MEDICAID ==
[~2021-07-26 13:40] MED LIST changes: +ACET-93 PO; +OXYC5TAB PO; -SULF1TAB35 PO; +SULF1TAB38 PO
[2021-07-26] MEDS ORDERED: NS IV 1000 ML 1,000 ML IV STA (13:55)
--- NOTE | 2021-07-26 13:59 | ED General ---
General Chief Complaint: Abdominal/GI Problems Stated Complaint: FEVER, CONGESTION, BODY ACHES Source of Information: Patient Exam Limitations: No Limitations History of Present Illness Date Seen by Provider: July 26, 2021 Time Seen by Provider: 13:57 Initial Comments Patient is a 26-year-old female who presents ED with flulike symptoms. Symptoms started yesterday. She reports fever as high as 103.8 at home. Has been taking Tylenol at home for the fever. She reports body aches and bones hurting. She states she had 2 episodes of watery diarrhea without any blood or mucus. She reports vomiting nonbilious. This occurred today. Denies cough, chest pain, abdominal pain, dysuria, increased urine frequency, headache, sore throat or ear pain. She is not up-to-date on her COVID or influenza vaccine. No one else at home with similar type symptoms. Denies of any known medical problems. Patient states she feels dehydrated after drinking p.o. fluids. She states if she feels weak and fatigued. Allergies and Home Medications Allergies Coded Allergies: No Known Drug Allergies (Unverified , 11/19/18) Patient Home Medication List Home Medication List Reviewed: Yes Acetaminophen (Acetaminophen) 500 Mg Tablet, 1,000 MG PO Q8H Prescribed by: MINDY DIAZ on 07/29/20837 Docusate Sodium (Colace) 100 Mg Capsule, 100 MG PO BID Prescribed by: MINDY DIAZ on 07/29/20837 Ibuprofen (Ibuprofen) 600 Mg Tablet, 600 MG PO Q6H Prescribed by: MINDY DIAZ on 07/29/20 08 Ondansetron (Ondansetron Odt) 4 Mg Tab.rapdis, 4 MG PO Q6H Prescribed by: CITLALLI HANCOCK on 07/26/21 1452 Oxycodone HCl (Oxycodone HCl) 5 Mg Tablet, 5 MG PO Q6H Prescribed by: MINDY DIAZ on 07/29/20 08 Pnv No.122/Iron/Folic Acid ( Multi Tablet) 1 Each Tablet, 1 EACH PO DAILY, (Reported) Entered as Reported by: NEFTALI LEE on 07/12/20 1359 Review of Systems Review of Systems Constitutional: chills; No diaphoresis; malaise, weakness EENTM: No blurred vision, No double vision, No vision loss, No dental problems, No nose pain, No throat pain Respiratory: No cough, No orthopnea, No short of breath Gastrointestinal: No abdominal pain; diarrhea, nausea, vomiting Genitourinary: No decreased output, No discharge Musculoskeletal: No back pain, No joint pain Skin: No change in color All Other Systems Reviewed Negative Unless Noted: Yes Past Gheincd-Reztze-Khzbrj Hx Immunizations Up To Date Tetanus Booster (TDap): Less than 5yrs PED Vaccines UTD: No Seasonal Allergies Seasonal Allergies: No Past Medical History Surgeries: Yes Section, Gallbladder Respiratory: No Cardiac: No Neurological: Yes Headaches /Migraines Reproductive Disorders: No Sexually Transmitted Disease: No HIV/AIDS: No Genitourinary: No Gastrointestinal: Yes Gastroesophageal Reflux, Gall Bladder Disease Musculoskeletal: No Endocrine: No HEENT: Yes (WEARS GLASSES, CLEFT PALate) Loss of Vision: Denies Hearing Impairment: Denies Cancer: No Psychosocial: Yes ADD/ADHD, Anxiety, Depression Integumentary: No Blood Disorders: No Adverse Reaction/Blood Tranf: No (N/A) Family Medical History FH: breast cancer (GREAT [employer]AND[employer]OTHER) Myocardial infarction (GRNADFATHER) No Pertinent Family Hx Physical Exam Vital Signs Vital Signs - First Documented 07/26/21 13:50 Temp 36.8 Pulse 96 Resp 18 B/P (MAP) 114/79 (91) Capillary Refill : Height, Weight, BMI Height: 5'6.00" Weight: 171lbs. 6.0oz. 77.498122fc; 27.37 BMI Method:Stated General Appearance: No Apparent Distress, WD/WN Eyes: Bilateral Eye Normal Inspection, Bilateral Eye PERRL, Bilateral Eye EOMI HEENT: PERRL/EOMI, TMs Normal, Normal ENT Inspection, Pharynx Normal Neck: Full Range of Motion, Normal Inspection, Non Tender, Supple Respiratory: Chest Non Tender, Lungs Clear, Normal Breath Sounds, No Accessory Muscle Use, No Respiratory Distress Cardiovascular: Regular Rate, Rhythm, No Edema, No Gallop, No JVD, No Murmur Gastrointestinal: Normal Bowel Sounds, No Organomegaly, No Pulsatile Mass, Non Tender, Soft Back: Normal Inspection, No CVA Tenderness, No Vertebral Tenderness Extremity: Normal Capillary Refill, Normal Inspection, Normal Range of Motion, Non Tender, No Calf Tenderness Neurologic/Psychiatric: Alert, Oriented x3, No Motor/Sensory Deficits, Normal Mood/Affect Skin: Normal Color, Warm/Dry Progress/Results/Core Measures Suspected Sepsis SIRS Temperature: Pulse: Respiratory Rate: Laboratory Tests 07/26/21 14:03: White Blood Count 5.7 Blood Pressure / Mean: Laboratory Tests 07/26/21 14:03: Creatinine 0.68, Platelet Count 203, Total Bilirubin 0.3 Results/Orders Lab Results Laboratory Tests Test 07/26/21 13:58 07/26/21 14:03 Range/Units Urine Color YELLOW Urine Clarity SL CLOUDY Urine pH 6.5 5-9 Urine Specific [place] 1.025 H 1.016-1.022 Urine Protein 2+ H NEGATIVE Urine Glucose (UA) NEGATIVE NEGATIVE Urine Ketones 3+ H NEGATIVE Urine Nitrite NEGATIVE NEGATIVE Urine Bilirubin NEGATIVE NEGATIVE Urine Urobilinogen 1.0 < = 1.0 MG/DL Urine Leukocyte Esterase NEGATIVE NEGATIVE Urine RBC (Auto) NEGATIVE NEGATIVE Urine RBC 0-2 /HPF Urine WBC 0-2 /HPF Urine Squamous Epithelial Cells 2-5 /HPF Urine Crystals PRESENT H /LPF Urine Amorphous Sediment MOD SANJEEV URATES H /LPF Urine Bacteria TRACE /HPF Urine Casts NONE /LPF Urine Mucus MODERATE H /LPF Urine Culture Indicated NO Urine Test NEGATIVE NEGATIVE White Blood Count 5.7 4.3-11.0 10^3/uL Red Blood Count 4.59 3.80-5.11 10^6/uL Hemoglobin 13.5 11.5-16.0 g/dL Hematocrit 40 35-52 % Mean Corpuscular Volume 86 80-99 fL Mean Corpuscular Hemoglobin 29 25-34 pg Mean Corpuscular Hemoglobin Concent 34 32-36 g/dL Red Cell Distribution Width 13.8 10.0-14.5 % Platelet Count 203 130-400 10^3/uL Mean Platelet Volume 9.4 9.0-12.2 fL Immature Granulocyte % (Auto) 0 % Neutrophils (%) (Auto) 80 H 42-75 % Lymphocytes (%) (Auto) 8 L 12-44 % Monocytes (%) (Auto) 11 0-12 % Eosinophils (%) (Auto) 0 0-10 % Basophils (%) (Auto) 0 0-10 % Neutrophils # (Auto) 4.6 1.8-7.8 10^3/uL Lymphocytes # (Auto) 0.5 L 1.0-4.0 10^3/uL Monocytes # (Auto) 0.6 0.0-1.0 10^3/uL Eosinophils # (Auto) 0.0 0.0-0.3 10^3/uL Basophils # (Auto) 0.0 0.0-0.1 10^3/uL Immature Granulocyte # (Auto) 0.0 0.0-0.1 10^3/uL Sodium Level 137 135-145 MMOL/L Potassium Level 3.2 L 3.6-5.0 MMOL/L Chloride Level 105 98-107 MMOL/L Carbon Dioxide Level 20 L 21-32 MMOL/L Anion Gap 12 5-14 MMOL/L Blood Urea Nitrogen 9 7-18 MG/DL Creatinine 0.68 0.60-1.30 MG/DL Estimat Glomerular Filtration Rate 124 BUN/Creatinine Ratio 13 Glucose Level 98 70-105 MG/DL Calcium Level 9.0 8.5-10.1 MG/DL Corrected Calcium 8.7 8.5-10.1 MG/DL Total Bilirubin 0.3 0.1-1.0 MG/DL Aspartate Amino Transf (AST/SGOT) 15 5-34 U/L Alanine Aminotransferase (ALT/SGPT) 14 0-55 U/L Alkaline Phosphatase 43 40-136 U/L Total Protein 7.3 6.4-8.2 GM/DL Albumin 4.4 3.2-4.5 GM/DL Lipase 6 L 8-78 U/L Procalcitonin 0.03 <0.10 NG/ML Influenza Type A (RT-PCR) Not Detected Not Detecte Influenza Type B (RT-PCR) Not Detected Not Detecte SARS-CoV-2 RNA (RT-PCR) Detected H Not Detecte My Orders Orders - KIMO MCNULTY Covid 19 Inhouse Test (07/26/21 13:41) Influenza A And B By Pcr (07/26/21 13:41) Cbc With Automated Diff (07/26/21 13:55) Comprehensive Metabolic Panel (07/26/21 13:55) Lipase (07/26/21 13:55) Procalcitonin (Pct) (07/26/21 13:55) Ua Culture If Indicated (07/26/21 13:55) Hcg,Qualitative Urine (07/26/21 13:55) Ns Iv 1000 Ml (Sodium Chloride 0.9%) (07/26/21 13:55) Ketorolac Injection (Toradol Injection) (07/26/21 14:00) Medications Given in ED Current Medications Medications Dose Ordered Sig/Tyrell Route Start Time Stop Time Status Last Admin Dose Admin Ketorolac Tromethamine 30 mg ONCE ONCE IVP 07/26/21 14:00 07/26/21 14:01 DC 07/26/21 14:14 30 MG Vital Signs/I&O 07/26/21 07/26/21 13:50 15:10 Temp 36.8 36.8 Pulse 96 90 Resp 18 18 B/P (MAP) 114/79 (91) 116/80 Capillary Refill : Departure Communication (PCP) Patient tested positive for COVID. No abdominal tenderness, cough or shortness of breath. Body aches fatigue and fever. Was given a liter of fluid. Slightly dehydrated with urinalysis. Negative for . Normal kidney function liver function. Patient states she is feeling much better after liter of fluid. Stable vital signs. Conservative treatment at home. Tylenol ibuprofen for pain. If any worsening symptoms return back to ED for further evaluation Impression Primary Impression: COVID-19 Disposition: 01 HOME, SELF-CARE Condition: Stable Departure-Patient Inst. Decision time for Depature: 14:50 Referrals: [facility] [place],LOCAL PHYSICIAN (PCP) Primary Care Physician Patient Instructions: COVID-19 (DC) Add. Discharge Instructions: Recommend quarantine for the next 10 days. Recommend staying hydrated. If any worsening symptoms return back to ED. Continue conservative treatment at home. Tylenol ibuprofen for pain and body aches. Recommend pulse ox to monitor oxygen. If any worsening symptoms return back to ED for further evaluation. All discharge instructions reviewed with patient and/or family. Voiced understanding. Scripts Ondansetron (Ondansetron Odt) 4 Mg Tab.rapdis 4 MG PO Q6H, #8 TAB Prov: KIMO MCNULTY 07/26/21 KIMO MCNULTY July 26, 2021 13:59
[2021-07-26] MEDS ORDERED: KETOROLAC 30 MG/ML VIAL IVP ONE (14:00)
[2021-07-26 14:05] LABS: CLARITY,URINE SL CLOUDY; COLOR,URINE YELLOW; GLUCOSE, URINE (UA) NEGATIVE (NEGATIVE); KETONES,URINE 3+ (NEGATIVE); LEUKOCYTE ESTERASE ,URINE NEGATIVE (NEGATIVE); NITRITE,URINE NEGATIVE (NEGATIVE); PH,URINE 6.5 (5-9); PROTEIN,URINE 2+ (NEGATIVE)
[2021-07-26 14:12] LABS: BILIRUBIN,URINE NEGATIVE (NEGATIVE)
[2021-07-26 14:13] LABS: AMORPHOUS SEDIMENT,UR MOD AMOR URATES /LPF; BACTERIA,URINE TRACE /HPF; RBC,URINE 0-2 /HPF; WBC,URINE 0-2 /HPF
[2021-07-26 14:14] LABS: BASOPHILS % (AUTO) 0 % (0-10); EOSINOPHILS % (AUTO) 0 % (0-10); HEMATOCRIT 40 % (35-52); HEMOGLOBIN 13.5 g/dL (11.5-16.0); LYMPHOCYTES # (AUTO) 0.5 10^3/uL (1.0-4.0); LYMPHOCYTES % (AUTO) 8 % (12-44); MEAN CORPUSCULAR HEMOGLOBIN 29 pg (25-34); MEAN CORPUSCULAR HGB CONC 34 g/dL (32-36); MEAN CORPUSCULAR VOLUME 86 fL (80-99); MEAN PLATELET VOLUME 9.4 fL (9.0-12.2); MONOCYTES # (AUTO) 0.6 10^3/uL (0.0-1.0); MONOCYTES % (AUTO) 11 % (0-12); NEUTROPHILS # (AUTO) 4.6 10^3/uL (1.8-7.8); NEUTROPHILS % (AUTO) 80 % (42-75); PLATELET COUNT 203 10^3/uL (130-400); WHITE BLOOD COUNT 5.7 10^3/uL (4.3-11.0)
[2021-07-26 14:27] LABS: ALBUMIN 4.4 GM/DL (3.2-4.5); POTASSIUM 3.2 MMOL/L (3.6-5.0)
[2021-07-26 14:30] LABS: TOTAL PROTEIN 7.3 GM/DL (6.4-8.2)
[2021-07-26 14:31] LABS: BILIRUBIN,TOTAL 0.3 MG/DL (0.1-1.0)
[2021-07-26 14:33] LABS: CREATININE SERUM 0.68 MG/DL (0.60-1.30)
[2021-07-26] MEDS ORDERED: ONDA4TAB11 PO (14:52)
[2021-07-26 15:10] VITALS: BP 116/80
== END 2021-07-26 15:15 | disposition home or self-care (01) ==
LOC: EDUNIT# 13:40 → ER 13:42
DX: U07.1 COVID-19 (principal); Z32.02 Encounter for pregnancy test, result negative
CPT/HCPCS: 36415; 80053; 81000; 83690; 84145; 84703; 85025; 87636